=== PATIENT | female | born 1960 | race Caucasian/White ===

== ENCOUNTER 2020-08-20 13:55 | Outpatient (RCR) | payer BC, SELFPAY ==
--- NOTE | 2020-08-22 07:20 | PTOPEVAL ---
Thank you for referring Minal White to [facility].? The patient is scheduled to be seen for therapy? ___2_x/week for 8 visits. Please review, sign, date and return this plan of care MONICA. I agree with and certify that the following plan of care is medically necessary. Referring Physician Date Admitting Provider: Attending Provider: caron hebert Referring Provider: *PT Outpatient Evaluation Start: 08/20/20 14:08 Freq: Status: Active Protocol: Document 08/20/20 14:09 JESSICA (Rec: 08/20/20 15:02 JESSICA [id number]) Therapy Assessment Status Assessment Status Assessment Status Evaluation Evaluation Information Problem Diagnosis s/p bilateral TKA Onset 07/23/20 Subjective Information Pt. reports that she underwent Query Text:As Reported By Patient/ surgery on 07/23/20. She Family states that she was doing outpatient in [place] and living with her daughter. She has now returned home. She states that she still has swelling. She reports that pain remains around a 3/10 and is taking occassional Tylenol . She reports that her goal is to be able to walk normal, navigate steps and be able to get out of a chair/toilet comfortably. Prior Level of Function Activity Level (Last 3 Months) Occupation Nurse Hand Dominance Right Activity of Daily Living Ability Independent Indoor/Home Mobility Independent Community Mobility Independent Stairs Ability Independent Functional Cognition (Planning, Shopping Independent , Taking Medications) Cooking Yes Cleaning Yes Laundry Yes Shopping Yes Driving Yes Pain Assessment Pain Scale Pain Scale Used Numeric (1 - 10) Self Report Pain Assessment Bilateral Knee(s) Reported Pain Level 3 Pain Description Aching Pain Score Pain Score 3: Self Report Interventions Used Interventions Used By Clinicians Activity or ADL's,Exercise Lower Extremity Range of Motion General Lower Extremity Range of Motion Gross Lower Extremity Range of Motion right knee AROM 0-115 Comments left knee AROM 2-113 Lower Extremity Muscle Strength Testing General Lower Extremity Strength Gross Lower Extremity Strength bilateral hip flexion 4+/5
== END 2020-08-30 11:16 | disposition home or self-care (01) ==
LOC: CHSPT 13:55
PROVIDERS: PCP Family Medicine
DX: Z96.653 Presence of artificial knee joint, bilateral (principal)
CPT/HCPCS: 97110; 97161; 97530

== ENCOUNTER 2021-06-19 10:25 | Outpatient (CLI) | payer BC, SELFPAY ==
[2021-06-19 11:19] LABS: SARS-CoV-2 Ag Negative (Negative)
[2021-06-19 11:50] LABS: Hematocrit 36.7 % (35.0-49.0); Hemoglobin 12.3 g/dL (12.0-15.0); Mean Corpuscular HGB Conc 33.5 g/dL (32.0-36.0); Mean Corpuscular Hemoglobin 29.4 pg (27.0-31.0); Mean Corpuscular Volume 87.6 fL (78.0-102.0); Mean Platelet Volume 10.4 fl (9.2-11.8); Platelet Count Result 152 K/mm3 (150-420); Red Blood Count 4.19 M/mm3 (4.20-5.40); Red Cell Distribution Width 12.2 % (11.6-14.4); White Blood Count 14.2 K/mm3 (4.8-10.8)
[2021-06-19 11:51] LABS: Appearance Urine Cloudy (Clear); Bilirubin Urine 2+ (Negative); Blood Urine 3+ (Negative); Glucose Urine UA Negative (Negative); Ketones Urine Trace (Negative); Leukocyte Esterase Ur 3+ (Negative); Nitrate Urine Negative (Negative); Protein Urine 2+ (Negative); Specific Grav Ur 1.025 (1.010-1.020); pH Urine 5.5 (5.0-8.0)
[2021-06-19 11:57] LABS: Add Urine Microscopic? YES; Bacteria Urine 3+ /hpf; Color Urine Dark Brown (Yellow); RBC Urine 21-50 /hpf (0-2); Squamous Epithelial Cell Urine Moderate /hpf (Few); WBC Urine >75 /hpf (0-3)
[2021-06-19 12:13] LABS: Alanine Aminotransferase 100 U/L (14-59); Albumin Level 2.9 g/dL (3.4-5.0); Alkaline Phosphatase 333 U/L (46-116); Amylase 24 U/L (25-115); Anion Gap 13 mmol/L (8-16); Aspartate Amino Transferase 97 U/L (15-37); Bilirubin,Total 1.6 mg/dL (0.00-1.00); Blood Urea Nitrogen 30 mg/dL (7-18); Calcium 8.6 mg/dL (8.5-10.1); Carbon Dioxide 24 mmol/L (21-32); Chloride 98 mmol/L (98-108); Estimated Glomerular Filt Rate 17; Glucose 125 mg/dL (70-99); Lipase 81 U/L (73-393); Osmolality Calculated 287 mOsm/kg (285-295); Potassium 3.8 mmol/L (3.5-5.1); Sodium 135 mmol/L (136-145); Total Protein 6.9 g/dL (6.4-8.2)
[2021-06-19 12:26] LABS: Band Neutrophils Percent 15 % (0-6); Lymphocytes Absolute Manual 0.14 K/mm3 (1.1-4.5); Lymphocytes Percent Manual 1 % (18-44); Metamyelocytes Percent 4 %; Monocytes Absolute Manual 0.14 K/mm3 (0.1-0.90); Monocytes Percent Manual 1 % (3-9); Myelocytes Percent 2 %; Neutrophils Absolute Manual 13.06 K/mm3 (1.7-7.2); Neutrophils Percent Manual 77 % (46-73); Platelet Estimate Adequate (Adequate); Total Cells Counted 100
== END 2021-06-19 10:26 | disposition home or self-care (01) ==
PROVIDERS: PCP Family Medicine; Visit Provider Family Medicine
DX: N20.1 Calculus of ureter (principal); R50.9 Fever, unspecified; R10.9 Unspecified abdominal pain; Z20.822 Contact with and (suspected) exposure to COVID-19
CPT/HCPCS: 36415; 80053; 81001; 82150; 83690; 85025; 87040; 87077; 87086; 87088; 87186; 87426; C9803

== ENCOUNTER 2021-06-19 13:46 | Inpatient (IN) | payer BC, SELFPAY ==
[2021-06-19] VITALS (18 sets, daily range): BP systolic 72–110; BP diastolic 43–78; PULSE 60–111; RESP 16–20; TEMP 36.4–37.7; O2SAT 94–100
--- NOTE | ~2021-06-19 | XR_ITS ---
EXAMINATION: XR abdomen/kub 1V EXAM DATE: 06/19/2021 15:14 INDICATION: Kidney stone diagnosed 2 days ago. TECHNIQUE: Frontal projection of the upper abdomen, frontal projection lower abdomen/pelvis for inter pretation. Correlation is made to chest CT performed earlier. FINDINGS: Multiple pelvic calcifications, phleboliths. Difficult to confidently pick out the suspect ed right UVJ 2 x 4 mm stone. Nonobstructive bowel gas pattern. There is no organomegaly. IMPRESSION: Multiple pelvic calcifications. Reviewed, dictated and finalized at location G. ACT AGENT
--- NOTE | ~2021-06-19 | XR_ITS ---
EXAMINATION: XR chest 1V portable DATE: 06/19/2021 15:13 INDICATION: Fever TECHNIQUE: frontal view of the chest was obtained. COMPARISON: None FINDINGS: 3.8 cm masslike opacity with smooth margins projecting over the right hilum. Suggestion of an additio nal 3 cm masslike opacity projecting over the left hilum. Calcified nodule at the left apex versus hy pertrophic change at the anterior left first rib. No other airspace opacities, pulmonary edema, pleur al effusion or pneumothorax. Heart size is normal. Small amount of gas within a retrocardiac small hi atal hernia. IMPRESSION: 1. Masslike opacities at the bilateral eli, unclear whether within the lungs are superimposed lungs. Differential includes primary bronchogenic carcinoma, metastatic lymphadenopathy, lymphoma or dilate d pulmonary vasculature suggesting pulmonary arterial hypertension. Recommend further evaluation with contrast-enhanced chest CT. Reviewed, dictated and finalized at location A. MBLING FABRICATOR IMPRESSION: 1. Masslike opacities at the bilateral eli, unclear whether within the lungs a re superimposed lungs. Differential includes primary bronchogenic carcinoma, me tastatic lymphadenopathy, lymphoma or dilated pulmonary vasculature suggesting pulmonary arterial hypertension. Recommend further evaluation with contrast-enh anced chest CT.
--- NOTE | ~2021-06-19 | XR_ITS ---
EXAMINATION: XR retrograde pyelo w/stent LT DATE: 06/19/2021 16:36 INDICATION: Left ureteral stone. TECHNIQUE: 7 intraoperative fluoroscopic views of the abdomen and pelvis were obtained. I was not pre sent. Fluoroscopy exposure time was 35 seconds. COMPARISON: CT abdomen and pelvis 06/19/2021 FINDINGS: The left-sided retrograde pyelogram demonstrates mild left hydronephrosis. The final images demonstrate a left internal ureteral stent in expected position. IMPRESSION: 1. Mild left hydronephrosis with left internal ureteral stent in expected position. Reviewed, dictated and finalized at location A. CITY PLANNING ANALYST IMPRESSION: 1. Mild left hydronephrosis with left internal ureteral stent in expected posit ion.
--- NOTE | ~2021-06-19 | CT_ITS ---
EXAMINATION: CT abdomen pelvis wo con EXAM DATE: 06/19/2021 14:59 INDICATION: L flank pain hx of kidney stone. Prior CT at outside institution. TECHNIQUE: Spiral CT of the abdomen and pelvis was performed without contrast. Axial, coronal and s agittal images of the abdomen and pelvis were reviewed. The dose-length product (DLP) for this exami nation was 445.24 mGy-cm. The exposure was tailored according to patient size (auto mA exposure cont rol), and iterative reconstruction (ASIR) was used as additional dose reduction technique. There is no prior study for comparison. FINDINGS: The liver, spleen, adrenal glands and pancreas are unremarkable. Gallbladder is unremarkab le. No biliary obstruction. There is left UVJ 2 x 4 mm stone indicated on axial image 166. No hydro nephrosis at present, but there is moderate fat stranding surrounding the ureter and the left kidney. There is also hyperdense material within the left renal pelvis, but also probably some on the right which indicates this could be contrast from patient's prior CT scan. There is ill-defined approximate ly 2-3 cm lobular region midpole posterior cortex of left kidney, differential diagnosis including py elonephritis, hemorrhagic cyst, renal cell cancer. The uterus is not identified and has likely been s urgically resected. The bladder is collapsed at time of imaging limiting evaluation. There is no re troperitoneal or pelvic lymphadenopathy. There is mild scattered arteriosclerotic disease. There are no findings to suggest appendicitis. There is small sliding gastroesophageal hiatal hernia . There is expected amount of colonic stool. There is mild to moderate scattered colonic diverticulo sis. There is no adjacent inflammatory change to suggest diverticulitis. The heart is normal in size . There are no pericardial or pleural effusions. The lung bases are unremarkable. There are no ost eoblastic or osteolytic lesions identified. IMPRESSION: 1. Left UVJ 2 x 4 mm stone, moderate periureteral and perinephric fat. Indeterminate left renal midp ole region which could be pyelonephritis, hemorrhagic cyst or renal cell cancer. Correlation should b e made with patient's recent contrast-enhanced CT when available. 2. Punctate right nephrolithiasis. 3. Mild to moderate colonic diverticulosis. 4. Small hiatal hernia. Reviewed, dictated and finalized at location G. TS BOOK SERVER IMPRESSION: 1. Left UVJ 2 x 4 mm stone, moderate periureteral and perinephric fat. Indeter minate left renal midpole region which could be pyelonephritis, hemorrhagic cys t or renal cell cancer. Correlation should be made with patient's recent contra st-enhanced CT when available. 2. Punctate right nephrolithiasis. 3. Mild to moderate colonic diverticulosis. 4. Small hiatal hernia.
--- NOTE | ~2021-06-19 | US_ITS ---
EXAMINATION: US abdomen limited EXAM DATE: 06/20/2021 09:31 INDICATION: Elevated liver enzymes . TECHNIQUE: Multiple grayscale and Doppler images of the abdomen right upper quadrant were obtained (froylan y a technologist who performed the scan) and subsequently reviewed. There is no prior study for [facility]. FINDINGS: The pancreatic head and body are normal in appearance. The pancreatic tail is not visualized. The l iver has normal echogenicity and contour. There are no focal liver lesions identified. There is no evidence of intrahepatic biliary duct dilation. Portal venous flow was seen in the hepatopedal, nor mal direction and has normal Doppler waveform. No right-sided hydronephrosis. Small right renal cyst . Common bile duct measures 2 mm, which is normal. The gallbladder wall is normal in thickness, with ex pected amount of distention. No sonographic evidence of pericholecystic fluid. There is no cholelit hiases. Technologist performing exam reports patient did not demonstrate sonographic Mohan's sign. Please note that this sign is less reliable in patients who have received pain medication. IMPRESSION: Unremarkable abdominal ultrasound exam. Reviewed, dictated and finalized at location B. ICAL CHEMISTRY TEACHER
--- NOTE | 2021-06-19 14:09 | ED.FEVER ---
HPI - Fever General Chief Complaint: Fever Stated Complaint: fevers Time Seen by Provider: 06/19/21 14:01 Source: RN notes reviewed History of Present Illness HPI Narrative: Patient presents emergency department from home for fever. Patient states that she began having flank pain on Thursday the she is the following day she began to have fevers up to 103 and had gone to the emergency department at that time she had been found to have a left UVJ kidney stone with the rest of her lab work remained unremarkable and been discharged home. She follow-up with her PCP today and had blood cultures that returned positive x2 there have been no other results of blood cultures other than her positive at this time her PCP directed come to the ER new called myself for report noted the patient's creatinine had increased from 1-2.7 from outpatient blood work has been done yesterday as well. Patient states he had a fever up to 103 this morning she took Tylenol 2 hours ago states her flank pain has improved she denies any chest pain shortness of breath abdominal pain nausea vomiting or any other symptoms Related Data Allergies Allergy/AdvReac Type Severity Reaction Status Date / Time meperidine AdvReac Mild Nausea and Verified 09/17/11 09:17 Vomiting Review of Systems Review of Systems: Gen.: Reports fever and positive blood cultures ENT: Denies congestion Respiratory: Denies shortness of breath or cough CV: Denies chest pain or palpitations GI: Denies abdominal pain nausea, emesis or diarrhea denies burning, urgency, frequency or hematuria Musculoskeletal: Denies back pain or muscle pain Neuro: Denies numbness, tingling, weakness or focal weakness Skin: Denies rash Except as documented, all other systems reviewed and negative [facility] Past Medical History Medical History (Updated 06/19/21 @ 16:04 by Daniela Gregory MD) Acute renal insufficiency Obesity Sarcoidosis Severe sepsis Social History Social History (Updated 06/19/21 @ 14:11 by Travis Nunn DO) Smoking status: Never smoker Exam Narrative: APPEARANCE: No acute distress, nontoxic, resting in bed EYES: EOMI HEENT: Normocephalic, atraumatic, OMM RESPIRATORY: No respiratory distress Clear to auscultation bilaterally with no rhonchi wheezing or rales. CARDIOVASCULAR: Regular rate and rhythm without murmurs rubs or gallops. ABDOMINAL: Soft, nontender, nondistended, no rebound or guarding MUSCULOSKELETAl: Moves all extremities. No clubbing, cyanosis or edema. NEURO: Awake and alert. Following commands, speech normal, no focal deficits SKIN:: Warm, dry. No rashes lesions or abrasions PSYCHIATRIC: Normal affect/mood, Course Course Emergency Course: Reviewed records from [place] patient with creatinine of 1.[address] scan did show stone in the left UVJ Discussed Dr Purvis patient's chest x-ray patient has sarcoidosis and this would correlate with the patient's chest x-ray findings Discussed with Dr. Mabry presentation work-up agrees with consult agrees with plan take patient to the OR today for stent placement Discussed with JAY Farley for Dr Purvis presentation work-up agrees with admission Discussed with patient and family results of workup and diagnosis. Discussed need for admission. Patient and family understand and agree to current treatment plan [id number] Dr. Gregory in the emergency department evaluate the patient plan take patient OR Vital Signs Vital signs: Vital Signs Temperature 99.8 F H 06/19/21 13:58 Pulse Rate 92 06/19/21 13:58 Respiratory Rate 18 06/19/21 13:58 Blood Pressure 91/43 L 06/19/21 13:58 Pulse Oximetry 100 06/19/21 13:58 Temperature 98.7 F 06/19/21 15:55 Pulse Rate 82 06/19/21 15:55 Respiratory Rate 20 06/19/21 15:55 Blood Pressure 109/54 L 06/19/21 15:55 Pulse Oximetry 97 06/19/21 15:55 MDM - Fever Lab Data Result diagrams: 06/19/21 14:15 06/19/21 14:15 La
[2021-06-19 14:26] LABS: Hematocrit 36.6 % (37.0-47.0); Hemoglobin 12.4 g/dL (12.0-15.0); Mean Corpuscular HGB Conc 33.9 g/dl (32-36); Mean Corpuscular Hemoglobin 29.3 pg (26-34); Mean Corpuscular Volume 86.5 fl (80-100); Mean Platelet Volume 10.1 fl (7.4-10.4); Platelet Count Result 152 k/mm3 (150-375); Red Blood Count 4.23 M/mm3 (4.2-5.4); Red Cell Distribution Width 12.5 % (11.5-14.5); White Blood Count 17.5 K/mm3 (4.5-10.0)
[2021-06-19] MEDS: SODIUM CHLORIDE 0.9% IV 1,000 ML 999 ML IV CONT ×2 (14:35→15:27)
[2021-06-19 14:41] LABS: Alanine Aminotransferase 80 U/L (4-35); Albumin Level 3.8 g/dL (3.5-5.1); Alkaline Phosphatase 304 U/L (38-126); Anion Gap 13 mmol/L (8-16); Aspartate Amino Transferase 108 U/L (14-36); Bilirubin,Total 1.7 mg/dL (0.2-1.3); Blood Urea Nitrogen 32 mg/dL (7-17); Calcium 8.7 mg/dL (8.4-10.2); Carbon Dioxide 23 mmol/L (22-30); Chloride 96 mmol/L (98-107); Estimated CRCL calculation 26 ml/min; Estimated Glomerular Filt Rate 20; Glucose 123 mg/dL (65-110); Potassium 3.8 mmol/L (3.4-5.0); Sodium 132 mmol/L (137-145)
[2021-06-19 14:43] LABS: INR 1.2; Prothrombin Time 14.6 Seconds (11.1-14.7)
[2021-06-19 14:44] LABS: Partial Thromboplastin Time 37.5 SECONDS (22.3-36.8)
[2021-06-19 14:52] LABS: Add Urine Microscopic? YES; Appearance Urine Turbid (Clear); Bacteria Urine 4+ /hpf; Bilirubin Urine 1+ (Negative); Blood Urine 2+ (Negative); Glucose Urine UA Negative (Negative); Ketones Urine Negative (Negative); Leukocyte Esterase Ur 2+ LEU/UL (Negative); Mucus Urine Heavy /lpf; Nitrate Urine Negative (Negative); Protein Urine 2+ mg/dL (Negative); RBC Urine 21-50 /hpf (0-2); Specific Grav Ur 1.024 (1.001-1.035); Squamous Epithelial Cell Urine Many /hpf (Few); WBC Urine >75 /hpf
[2021-06-19 14:53] LABS: Color Urine Dark Amber (Yellow)
[2021-06-19 15:03] LABS: Band Neutrophils Percent 21 % (0-6); Lymphocytes Absolute Manual 0.35 K/mm3 (1.1-4.5); Metamyelocytes Percent 1 %; Monocytes Percent Manual 4 % (3-9); Neutrophils Absolute Manual 16.27 K/mm3 (1.7-7.2); Neutrophils Percent Manual 72 % (46-73); Total Cells Counted 100
[2021-06-19 15:04] LABS: Platelet Estimate Adequate (Adequate)
--- NOTE | 2021-06-19 15:37 | WPDANESEPPF ---
Anes - Initial Pre Proc Eval Procedure: Operation Date: 06/19/21 16:00 Proposed Procedures p Cystoscopy, Left Stent Placement, Possible Stone Extraction - Daniela Gregory MD Date/Time: 06/19/21 15:37 Pre Op Diagnosis: fevers Patient Data Age: 60 Gender: F Height: 1.68 m Weight: 102.5 kg Last Vital Signs Temp 37.7 C H 06/19/21 13:58 Pulse 92 06/19/21 13:58 Resp 18 06/19/21 13:58 BP 91/43 L 06/19/21 13:58 Pulse Ox 100 06/19/21 13:58 Allergies Allergy/AdvReac Type Severity Reaction Status Date / Time meperidine AdvReac Mild Nausea and Verified 09/17/11 09:17 Vomiting Laboratory Tests 06/19/21 06/19/21 06/19/21 14:15 14:15 14:15 WBC 17.5 K/mm3 H K/mm3 (4.5-10.0) RBC 4.23 M/mm3 M/mm3 (4.2-5.4) Hgb 12.4 g/dL g/dL (12.0-15.0) Hct 36.6 % L % (37.0-47.0) MCV 86.5 fl fl (80-100) MCH 29.3 pg pg (26-34) MCHC 33.9 g/dl g/dl (32-36) RDW 12.5 % % (11.5-14.5) Plt Count 152 k/mm3 k/mm3 (150-375) MPV 10.1 fl fl (7.4-10.4) Immature Gran % (Auto) Not Reportable Neut % (Auto) Not Reportable Lymph % (Auto) Not Reportable [place] % (Auto) Not Reportable Eos % (Auto) Not Reportable Baso % (Auto) Not Reportable Lymph # (Auto) Not Reportable [place] # (Auto) Not Reportable Eos # (Auto) Not Reportable Baso # (Auto) Not Reportable Abs Immat Gran (auto) Not Reportable Absolute Neuts (auto) Not Reportable Absolute Nucleated RBC Not Reportable Total Counted 100 Neutrophils % (Manual) 72 % % (46-73) Band Neutrophils % 21 % H % (0-6) Lymphocytes % (Manual) 2.0 % L % (18-44) Monocytes % (Manual) 4 % % (3-9) Metamyelocytes % 1 % % Nucleated RBC % Not Reportable Abs Neuts (Manual) 16.27 K/mm3 H K/mm3 (1.7-7.2) Abs Lymphs (Manual) 0.35 K/mm3 L K/mm3 (1.1-4.5) Abs Monocytes (Manual) 0.70 K/mm3 K/mm3 (0.1-0.90) Platelet Estimate Adequate (Adequate) PT 14.6 Seconds Seconds (11.1-14.7) INR 1.2 APTT 37.5 SECONDS H SECONDS (22.3-36.8) Sodium 132 mmol/L L mmol/L (137-145) Potassium 3.8 mmol/L mmol/L (3.4-5.0) Chloride 96 mmol/L L mmol/L (98-107) Carbon Dioxide 23 mmol/L mmol/L (22-30) Anion Gap 13 mmol/L mmol/L (8-16) BUN 32 mg/dL H mg/dL (7-17) Creatinine 2.50 mg/dL H mg/dL (0.7-1.0) Estim Creat Clear Calc 26 ml/min ml/min Estimated GFR 20 L (59 - ) Glucose 123 mg/dL H mg/dL (65-110) Lactic Acid Calcium 8.7 mg/dL mg/dL (8.4-10.2) Total Bilirubin 1.7 mg/dL H mg/dL (0.2-1.3) AST 108 U/L H U/L (14-36) ALT 80 U/L H U/L (4-35) Alkaline Phosphatase 304 U/L H U/L (38-126) Total Protein 7.0 g/dL g/dL (6.3-8.2) Albumin 3.8 g/dL g/dL (3.5-5.1) Urine Color Urine Appearance Urine pH Ur Specific [place] Urine Protein Urine Glucose (UA) Urine Ketones Ur Blood (Man) Urine Nitrate Urine Bilirubin Urine Urobilinogen Leukocyte Esterase Rfl Urine RBC Urine WBC Ur Squamous Epith Cells Urine Bacteria Urine Mucus SARS-CoV-2 RNA (RT-PCR) 06/19/21 06/19/21 06/19/21 14:15 14:21 15:29 WBC RBC Hgb Hct MCV MCH MCHC RDW Plt Count MPV Immature Gran % (Auto)
--- NOTE | 2021-06-19 16:01 | WPDURCON ---
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 The patient with sepsis secondary to urinary tract infection and obstruction of her left collecting system. -plan cystoscopy and left ureteral stent insertion. As the stone is in the ureterovesical junction it is possible that stone removal be necessary in order to place a ureteral stent. The risks of procedure include limb the to worsening infection, inability to place stent, injury to surrounding structures, need for additional operations were all discussed. Patient understands the risk of this emergent procedure and agrees to proceed Urology Consult Note HPI Date Seen: 06/19/21 Primary Care Provider: Anthony Gomez MD Consult Narrative Narrative: Minal White is a 60 year old female who presents to the ER with fevers. She was found to have a left-sided ureteral stone 2 days ago at an outside facility and discharged home. Since that time the patient developed fevers and chills. Patient presented to the emergency department for further evaluation. The ER physician states that she has had positive blood cultures x2 when taken on Thursday Review of Systems Review of Systems: All systems reviewed & are unremarkable except as noted in HPI and below PMFSH Past Medical History Medical History (Updated 06/19/21 @ 16:04 by Daniela Gregory MD) Acute renal insufficiency Obesity Sarcoidosis Severe sepsis Social History Social History (Updated 06/19/21 @ 14:11 by Travis Nunn DO) Smoking status: Never smoker Meds Home Medications and Allergies Allergies Allergy/AdvReac Type Severity Reaction Status Date / Time meperidine AdvReac Mild Nausea and Verified 09/17/11 09:17 Vomiting Vital Signs Vital Signs - 24 hr 06/19/21 13:58 06/19/21 15:37 Temperature 37.7 C H Pulse Rate 92 83 Respiratory Rate 18 Blood Pressure 91/43 L 109/54 L Pulse Oximetry 100 98 Exam Narrative: The patient is awake she is alert she is no acute distress. Breathing is unlabored. Abdomen soft nontender nondistended. Results Labs CBC & Chem 7: 06/19/21 14:15 06/19/21 14:15 Labs: Short CBC 06/19/21 Range/Units 14:15 WBC 17.5 H (4.5-10.0) K/mm3 Hgb 12.4 (12.0-15.0) g/dL Hct 36.6 L (37.0-47.0) % Plt Count 152 (150-375) k/mm3 BMP 06/19/21 14:15 Sodium 132 L Potassium 3.8 Chloride 96 L Carbon Dioxide 23 BUN 32 H Creatinine 2.50 H Glucose 123 H Calcium 8.7 Liver Function 06/19/21 Range/Units 14:15 Total Bilirubin 1.7 H (0.2-1.3) mg/dL AST 108 H (14-36) U/L ALT 80 H (4-35) U/L Alkaline Phosphatase 304 H (38-126) U/L Albumin 3.8 (3.5-5.1) g/dL Urine 06/19/21 Range/Units 14:21 Urine Color Dark miriam (Yellow) Urine Appearance Turbid H (Clear) Urine pH 5.0 (5.0-9.0) Ur Specific Hundred 1.024 (1.001-1.035) Urine Protein 2+ H (Negative) mg/dL Urine Glucose (UA) Negative (Negative) mg/dL Ordering Physician: Travis Nunn III, DO Date of Service: 06/19/21 Procedure(s): CT abdomen pelvis wo con Accession Number(s): [id number] cc: Travis Nunn III DO; Anthony Gomez MD~ EXAMINATION: CT abdomen pelvis wo con EXAM DATE: 06/19/2021 14:59 INDICATION: L flank pain hx of kidney stone. Prior CT at outside institution. TECHNIQUE: Spiral CT
[2021-06-19 16:12] LABS: SARS-CoV-2 RNA PCR Negative
[2021-06-19] MEDS: LIDOCAINE HCL 2% GEL UROJET 10 ML PKG MUCOUS MEM (16:25)
--- NOTE | 2021-06-19 16:30 | W.PM.PROC2 ---
Procedure Note - Detailed Date of Procedure 06/19/21 Pre-op Diagnosis Left ureteral stone, sepsis Post-op Diagnosis same Procedure Performed Cystoscopy, left retrograde pyelogram, left ureteral stent insertion Surgeon Daniela Gregory MD Anesthesia MAC Description of Procedure Informed consents obtained. Patient taken the operating. She given preoperative IV antibiotics in the emergency department. She was induced with anesthesia . She was placed in the dorsal lithotomy position. She was prepped and draped. We inserted a 20 F cystoscope through the urethra into the bladder. We inspected the bladder and there were no mucosal abnormalities. I did not see the stone visible at the ureterovesical junction. We then cannulated the left ureteral orifice with a Plexisoft wire and advanced 5 F angiographic catheter into the proximal ureter. Urine culture was obtained from the left collecting system. A retrograde pyelogram was performed revealing moderate left hydronephrosis. Over the wire a 6 F variable length stent was placed with a curl in the renal pelvis and a curl in the bladder. The bladder there was then emptied with a Oliver catheter. The patient was awakened and taken to recovery room in stable condition Drains No Packing No Pathology none sent Complications No immediate complications Condition stable Disposition PACU
[2021-06-19] MEDS: LACTATED RINGERS 1,000 ML 30 ML IV CONT ×3 (16:38→17:54)
[2021-06-19] MEDS: ePHEDrine sulfate INJ 50 MG/ML AMPUL IV PUSH ×3 (17:20→17:28)
[2021-06-19 17:23] LABS: Reflex Lactic Acid Yes or No Add Lactic
--- NOTE | 2021-06-19 18:43 | ADMGEN ---
This patient, Minal White, was admitted to Medical Room 250-01 from PACU Patient/family oriented to hospital policies and general routines including ID bracelet, bed and alarms, visiting hours, pain management, procedures, bathroom and other care routines, personal items, smoking policy, room service/diet, and visiting hours. Information on how to activate the Rapid Response Team has been discussed. Patient/Family are encouraged to report perceived risks to care and to ask questions if they do not understand what they are told or what they should do.
[2021-06-19 19:05] LABS: Lactic Acid 2.2 mmol/L (0.7-2.1)
[2021-06-19] MEDS: SODIUM CHLORIDE 0.9% IV 1,000 ML 125 ML IV CONT (19:48)
[2021-06-20 00:35] VITALS: BP 117/65; PULSE 66; RESP 18; TEMP 36.4; O2SAT 99
--- NOTE | 2021-06-20 01:36 | PM.IMHP ---
H&P: HPI History of Present Illness Date/Time: 06/19/210 this is a 60-year-old female patient who has had no previous history of kidney stones. The patient stated that her flank pain started on Thursday the . The following day she began had fevers up to 103 and she went to the emergency room in [place]. Initially the patient thought that maybe she just had a viral infection. However the patient was found to have a left UVJ stone with normal labs. The patient was then discharged to home. She did follow-up with her primary care doctor and that she did have blood cultures that were returned to be positive x2. The patient's creatinine was normal at that time. The patient had a fever up to 103 this morning and she took Tylenol 2 hours prior to coming to the emergency room. Sodium 132. Creatinine is 2.5 BUN 32 glucose 123. Lactic is 3.0 and then it came down to 2.2 after fluids. Zaiz T is 108? total bilirubin 1.7. AST 108. ALT 80. Alkaline phosphatase 304. Patient is positive for UTI. The patient was started on IV fluids ceftriaxone, fentanyl, and Versed. White count 17.5. CT scan of the abdomen and pelvis was read as the following. 1. Left UVJ 2 x 4 mm stone, moderate periureteral and perinephric fat. Indeterminate left renal midpole region which could be pyelonephritis, hemorrhagic cyst or renal cell cancer. Correlation should be made with patient's recent contrast-enhanced CT when available. 2. Punctate right nephrolithiasis. 3. Mild to moderate colonic diverticulosis. 4. Small hiatal hernia. Chest x-ray was read as the following Masslike opacities at the bilateral eli, unclear whether within the lungs are superimposed lungs. Differential includes primary bronchogenic carcinoma, metastatic lymphadenopathy, lymphoma or dilated pulmonary vasculature suggesting pulmonary arterial hypertension. Recommend further evaluation with contrast-enhanced chest CT. The patient had a left internal ureteral stent placed per Urology. The patient has no complaints at this time. Patient was initially admitted to observation and then changed to inpatient status on the date of service of 06/19/2021. Chief Complaint: Flank pain Review of Systems Review of Systems: All systems reviewed & are unremarkable except as noted in HPI and below Constitutional: Constitutional: Reports as per HPI and Reports no additional constitutional complaints Eyes: Eyes: Reports as per HPI and Reports no additional eye complaints ENT: Reports system reviewed and no additional complaints, except as documented and Reports Normal hearing present Cardiovascular: Cardiovascular: Reports no additional cardiovascular complaints Respiratory: Respiratory: Reports no additional respiratory complaints and Reports no additional respiratory complaints Gastrointestinal: Gastrointestinal: Reports as per HPI and Reports no additional gastrointestinal complaints Musculoskeletal: Musculoskeletal: Reports no additional musculoskeletal complaints Integumentary/Breasts: Skin/Breast: Reports system reviewed and no additional complaints, except as docu and Reports as per HPI Neurologic: Reports system reviewed and no additional complaints, except as documented, Reports as per HPI and Reports Normal hearing present Psychiatric: Psychiatric: Reports no additional psychiatric complaints and Reports as per HPI Endocrine: Endocrine: Reports no additional endocrine complaints Hematologic/Lymphatic: Hematologic/Lymphatic: Reports no additional hematologic/lymphatic complaints Allergic/Immunologic: Allergic/Immunologic: Reports no additional allergic/immunologic complaints PMFSH Past Medical History Medical History (Updated 06/20/21 @ 02:03 by Martine Galarza NP) Acute renal insufficiency Obesity Sarcoidosis Severe sepsis Surgical History Surgical History (Updated 06/20/21 @ 01:52 by Martine Galarza NP) H/O vaginal hysterectomy History of tonsillectomy Hx of cholecystec
[2021-06-20] MEDS: SODIUM CHLORIDE 0.9% IV 1,000 ML 125 ML IV CONT ×3 (03:23→22:13)
[2021-06-20 06:00] VITALS: BP 115/58; PULSE 76; RESP 16; TEMP 36.5; O2SAT 98
[2021-06-20 06:34] LABS: Basophils Absolute Auto 0.1 K/mm3 (0.0-0.1); Basophils Percent Auto 0.6 % (0.2-1.2); Hematocrit 31.9 % (37.0-47.0); Hemoglobin 10.6 g/dL (12.0-15.0); Immature Granulocyte Absolute 0.13 K/mm3 (0.00-0.031); Immature Granulocyte Percent A 1.1 % (0-0.5); Lymphocytes Absolute Auto 0.31 K/mm3 (0.9-3.2); Lymphocytes Percent Auto 2.5 % (18.3-44.2); Mean Corpuscular HGB Conc 33.2 g/dl (32-36); Mean Corpuscular Hemoglobin 29.1 pg (26-34); Mean Corpuscular Volume 87.6 fl (80-100); Mean Platelet Volume 11.2 fl (7.4-10.4); Monocytes Absolute Auto 0.5 K/mm3 (0.1-0.6); Monocytes Percent Auto 4.4 % (2.6-8.5); Neutrophils Absolute Auto 11.2 K/mm3 (1.3-6.7); Neutrophils Percent Auto 91.4 % (45.5-73.1); Platelet Count Result 116 k/mm3 (150-375); Red Blood Count 3.64 M/mm3 (4.2-5.4); Red Cell Distribution Width 12.8 % (11.5-14.5); White Blood Count 12.3 K/mm3 (4.5-10.0)
[2021-06-20 07:18] LABS: Alanine Aminotransferase 69 U/L (4-35); Albumin Level 3.3 g/dL (3.5-5.1); Alkaline Phosphatase 226 U/L (38-126); Anion Gap 8 mmol/L (8-16); Aspartate Amino Transferase 57 U/L (14-36); Bilirubin,Total 0.7 mg/dL (0.2-1.3); Blood Urea Nitrogen 25 mg/dL (7-17); Calcium 8.5 mg/dL (8.4-10.2); Carbon Dioxide 25 mmol/L (22-30); Chloride 104 mmol/L (98-107); Estimated CRCL calculation 46 ml/min; Estimated Glomerular Filt Rate 38; Glucose 107 mg/dL (65-110); Lipase 51 U/L (23-300); Magnesium 1.9 mg/dL (1.6-2.3); Sodium 137 mmol/L (137-145)
[2021-06-20 07:25] LABS: Hepatitis B Surface Antigen Negative (Negative)
[2021-06-20 07:27] LABS: Thyroid Stimulating Hormone Reflex 0.757 uIU/mL (0.465-4.68)
[2021-06-20 07:31] LABS: HAV RESULT Negative (Negative); Hepatitis B Core IgM Result Negative (Negative)
[2021-06-20 07:43] LABS: Hepatitis C Virus Antibody Negative (Negative)
[2021-06-20 08:00] LABS: CRP 34.9 mg/dL (<1.0)
[2021-06-20 10:23] VITALS: BP 125/86; PULSE 91; RESP 18; TEMP 36.3; O2SAT 100
--- NOTE | 2021-06-20 13:19 | PM.IMPN ---
Progress Note: A&P Assessment and Plan (1) Left ureteral calculus: Code(s): N20.1 - Calculus of ureter Status: Acute Assessment and Plan: The patient was found have a 4 mm left distal ureter stone with associated hydronephrosis. With sepsis secondary to urinary tract infection obstruction of her left collecting system. Patient had a cystoscopy and left ureteral stent inserted. Please see operative note per Urology. The patient has not had any previous history of having any kidney stones. However the patient does have a history of sarcoidosis which could cause hypercalcemia. 06/20/2021 Interval history: patient with a flank pain was found to have 4 mm left distal ureteral stone with associated hydronephrosis and fever, patient was seen by Urology and cystoscopy and stent was placed, patient urine and blood culture is growing Gram-negative bacilli, patient is treated with ceftriaxone, will follow-up on blood and urine culture sensitivity and further recommendation to follow, upon arrival patient serum creatinine was 2.77 most likely due to hydronephrosis and poor p.o. intake, it is trended now to 1.4 will continue gentle hydration and monitor kidney function, will continue to monitor and further recommendation to follow (2) Acute renal insufficiency: Code(s): N28.9 - Disorder of kidney and ureter, unspecified Status: Acute Assessment and Plan: Patient had obstructive nephropathy. Repeat labs in the a.m.. Most likely due to the kidney stone. Now that it has been removed hopefully will see the numbers come down. Continue with IV fluids. I did not order a renal ultrasound at this time but the patient did have left hydronephrosis with the left UVJ stone. (3) Elevated liver enzymes: Code(s): R74.8 - Abnormal levels of other serum enzymes Status: Acute Assessment and Plan: Unsure if this is related to early sepsis. Check lactic level. Abdominal ultrasound has been ordered. (4) UTI (urinary tract infection): Code(s): N39.0 - Urinary tract infection, site not specified Status: Acute Assessment and Plan: Repeat cultures. Urine and blood. We will need her records from [facility] for cultures and sensitivity from her last cultures. Continue with Rocephin for now. (5) Sarcoidosis: Code(s): D86.9 - Sarcoidosis, unspecified Status: Acute Assessment and Plan: Patient has some lymphadenopathy noted on her chest x-ray. She has masslike opacities. Will follow with CT of the lung. Most likely this is her sarcoidosis. Subjective Date/time seen: 06/20/21 13:19 HPI: this is a 60-year-old female patient who has had no previous history of kidney stones. The patient stated that her flank pain started on Thursday the . The following day she began had fevers up to 103 and she went to the emergency room in [place]. Initially the patient thought that maybe she just had a viral infection. However the patient was found to have a left UVJ stone with normal labs. The patient was then discharged to home. She did follow-up with her primary care doctor and that she did have blood cultures that were returned to be positive x2. The patient's creatinine was normal at that time. The patient had a fever up to 103 this morning and she took Tylenol 2 hours prior to coming to the emergency room. Sodium 132. Creatinine is 2.5 BUN 32 glucose 123. Lactic is 3.0 and then it came down to 2.2 after fluids. Zaiz T is 108? total bilirubin 1.7. AST 108. ALT 80. Alkaline phosphatase 304. Patient is positive for UTI. The patient was started on IV fluids ceftriaxone, fentanyl, and Versed. White count 17.5. CT scan of the abdomen and pelvis was read as the following. 1. Left UVJ 2 x 4 mm stone, moderate periureteral and perinephric fat. Indeterminate left renal midpole region which could be pyelonephritis, hemorrhagic cyst or renal cell cancer. Correlation should be made
--- NOTE | 2021-06-20 14:04 | WPDUROPN2 ---
Progress Note: A&P Assessment and Plan (1) Left ureteral calculus: Code(s): N20.1 - Calculus of ureter Status: Acute (2) Severe sepsis: Code(s): A41.9 - Sepsis, unspecified organism; R65.20 - Severe sepsis without septic shock Status: Acute (3) Acute renal insufficiency: Code(s): N28.9 - Disorder of kidney and ureter, unspecified Status: Acute Assessment and Plan: Much improved, both subjectively and objectively. Await repeat culture. I'll plan plans for definitive left ureteral stone extraction for 1-2 weeks (following treatment current UTI) Subjective Subjective Date/Time Seen: 06/20/21 14:04 Pt. feeling much better, tolerating stent well. Review of Systems Cardiovascular: Cardiovascular: Denies chest pain, Denies lightheadedness, Denies palpitations and Denies dyspnea Respiratory: Respiratory: Denies dyspnea Gastrointestinal: Gastrointestinal: Denies diarrhea, Denies nausea and Denies vomiting Genitourinary: Genitourinary: Denies hematuria and Denies dysuria Endocrine: Endocrine: Denies palpitations Exam Const: General: no acute distress Resp: Effort & Inspection: normal respiratory effort GI: Inspection: non-distended GI Palp: No abdominal tenderness and No Guarding due to palpation present (GI) Auscultation: normal bowel sounds Objective Data Vital Signs Vital Signs: Vital Signs - 24 hr 06/19/21 15:37 06/19/21 15:55 06/19/21 16:38 Temperature 98.7 F 98.1 F Pulse Rate 83 82 86 Respiratory Rate 20 18 Blood Pressure 109/54 L 109/54 L 80/48 L Pulse Oximetry 98 97 96 06/19/21 16:45 06/19/21 17:00 06/19/21 17:15 Temperature Pulse Rate 77 60 67 Respiratory Rate 18 18 18 Blood Pressure 98/61 L 80/55 L 90/60 L Pulse Oximetry 94 100 100 06/19/21 17:20 06/19/21 17:25 06/19/21 17:30 Temperature Pulse Rate 63 68 69 Respiratory Rate 18 18 20 Blood Pressure 72/58 L 90/67 L 110/65 Pulse Oximetry 100 100 100 06/19/21 17:45 06/19/21 18:00 06/19/21 18:15 Temperature 98.3 F Pulse Rate 74 78 82 Respiratory Rate 20 18 18 Blood Pressure 106/78 104/70 96/52 L Pulse Oximetry 100 99 98 06/19/21 18:30 06/19/21 18:59 06/19/21 19:00 Temperature 97.5 F L 97.9 F Pulse Rate 77 111 H 75 Respiratory Rate 16 20 16 Blood Pressure 97/63 L 102/58 L 100/54 L Pulse Oximetry 99 100 99 06/19/21 19:30 06/19/21 20:30 06/20/21 00:35 Temperature 97.9 F 97.6 F 97.6 F Pulse Rate 73 71 66 Respiratory Rate 16 16 18 Blood Pressure 110/54 L 96/54 L 117/65 Pulse Oximetry 100 98 99 06/20/21 06:00 06/20/21 10:23 Temperature 97.7 F 97.3 F L Pulse Rate 76 91 Respiratory Rate 16 18 Blood Pressure 115/58 L 125/86 Pulse Oximetry 98 100 Intake/Output Intake/Output: Intake & Output 06/17/21 06/18/21 06/19/21 06/20/21 23:59 23:59 23:59 23:59 Intake Total 1950 2100 Output Total 220 1200 Balance 1730 900 Meds/Results Medications: Active Medications Generic Name Dose Route Start Last Admin Trade Name Freq PRN Reason Stop Dose Admin Ceftriaxone Sodium/Dextrose 1 gm in 50 mls @ 100 mls/hr 06/20/21 14:00 06/20/21 13:56 Rocephin 1 Gm/D5w 50 Ml IVPB 100 mls/hr Q24H PATIENCE Administration Sodium Chloride 1,000 mls @ 125 mls/hr 06/19/21 15:10 06/20/21 14:00 Normal Saline Iv IV CONT 125 mls/hr .Q8H PATIENCE Administration Radiology Results: ITS Impressions Abdomen/Pelvis CT 06/19/21 15:03 IMPRESSION: 1. Left UVJ 2 x 4 mm stone, moderate periureteral and perinephric fat. Indeterminate left renal midpole region which could be pyelonephritis, hemorrhagic cyst or renal cell cancer. Correlation should be made with patient's recent contrast-enhanced CT when available. 2. Punctate right nephrolithiasis. 3. Mild to moderate colonic diverticulosis. 4. Small hiatal hernia. Abdomen X-Ray 06/19/21 15:15 IMPRESSION: Multiple pelvic calcifications. Chest X-Ray 06/19/21 15:16 IMPRESSION: 1. Mas
[2021-06-20 14:07] VITALS: BP 113/61; PULSE 81; RESP 20; TEMP 36.4; O2SAT 98
[2021-06-20 20:20] VITALS: BP 116/67; PULSE 68; RESP 18; TEMP 36.8; O2SAT 100
[2021-06-21 04:32] VITALS: BP 106/60; PULSE 69; RESP 18; TEMP 36.8; O2SAT 97
[2021-06-21] MEDS: SODIUM CHLORIDE 0.9% IV 1,000 ML 125 ML IV CONT (06:20)
--- NOTE | 2021-06-21 11:37 | PM.IMPN ---
Progress Note: A&P Assessment and Plan (1) Left ureteral calculus: Code(s): N20.1 - Calculus of ureter Status: Acute Assessment and Plan: The patient was found have a 4 mm left distal ureter stone with associated hydronephrosis. With sepsis secondary to urinary tract infection obstruction of her left collecting system. Patient had a cystoscopy and left ureteral stent inserted. Please see operative note per Urology. The patient has not had any previous history of having any kidney stones. However the patient does have a history of sarcoidosis which could cause hypercalcemia. 06/20/2021 Interval history: patient with a flank pain was found to have 4 mm left distal ureteral stone with associated hydronephrosis and fever, patient was seen by Urology and cystoscopy and stent was placed, patient urine and blood culture is growing Gram-negative bacilli, patient is treated with ceftriaxone, will follow-up on blood and urine culture sensitivity and further recommendation to follow, upon arrival patient serum creatinine was 2.77 most likely due to hydronephrosis and poor p.o. intake, it is trended now to 1.4 will continue gentle hydration and monitor kidney function, will continue to monitor and further recommendation to follow (2) Acute renal insufficiency: Code(s): N28.9 - Disorder of kidney and ureter, unspecified Status: Acute Assessment and Plan: Patient had obstructive nephropathy. Repeat labs in the a.m.. Most likely due to the kidney stone. Now that it has been removed hopefully will see the numbers come down. Continue with IV fluids. I did not order a renal ultrasound at this time but the patient did have left hydronephrosis with the left UVJ stone. (3) Elevated liver enzymes: Code(s): R74.8 - Abnormal levels of other serum enzymes Status: Acute Assessment and Plan: Unsure if this is related to early sepsis. Check lactic level. Abdominal ultrasound has been ordered. (4) UTI (urinary tract infection): Code(s): N39.0 - Urinary tract infection, site not specified Status: Acute Assessment and Plan: Repeat cultures. Urine and blood. We will need her records from [facility] for cultures and sensitivity from her last cultures. Continue with Rocephin for now. (5) Sarcoidosis: Code(s): D86.9 - Sarcoidosis, unspecified Status: Acute Assessment and Plan: Patient has some lymphadenopathy noted on her chest x-ray. She has masslike opacities. Will follow with CT of the lung. Most likely this is her sarcoidosis. Subjective Date/time seen: 06/21/21 11:37 06/20/2021 Interval history: patient with a flank pain was found to have 4 mm left distal ureteral stone with associated hydronephrosis and fever, patient was seen by Urology and cystoscopy and stent was placed, patient urine and blood culture is growing Gram-negative bacilli, patient is treated with ceftriaxone, will follow-up on blood and urine culture sensitivity and further recommendation to follow, upon arrival patient serum creatinine was 2.77 most likely due to hydronephrosis and poor p.o. intake, it is trended now to 1.4 will continue gentle hydration and monitor kidney function, will continue to monitor and further recommendation to follow. 06/21/2021 Interval history:Patient remains clinically stable no new complaints denies any fever or chills, her urine and blood culture are growing E coli sensitive to ceftriaxone, discharge the patient home and patient will receive IV antibiotics for 5 days at home and thereafter cefdinir 300 mg b.i.d. for 5 days, patient will follow-up with her urologist is scheduled, patient is being discharged Review of Systems Review of Systems: All systems reviewed & are unremarkable except as noted in HPI and below Objective Data Vital Signs Vital Signs: Vital Signs - 24 hr 06/20/21 14:07 06/20/21 20:20 06/21/21 04:32 Temperature 97.5 F L 98
[2021-06-21] MEDS: LIDOCAINE HCL 1% PF INJ 5 ML VIAL INFILTRATE (13:30)
--- NOTE | 2021-06-21 13:36 | WPDUROPN2 ---
Progress Note: A&P Assessment and Plan (1) Left ureteral calculus: Code(s): N20.1 - Calculus of ureter Status: Acute (2) Severe sepsis: Code(s): A41.9 - Sepsis, unspecified organism; R65.20 - Severe sepsis without septic shock Status: Acute Additional Plan Much improved Plan discharge home on antibiotics per primary team Plan for definitive left ureteral stone extraction for 1-2 weeks Subjective Subjective Date/Time Seen: 06/21/21 13:36 no new complaints - pt feeling much better Exam Const: General: cooperative, healthy appearing and comfortable Objective Data Vital Signs Vital Signs: Vital Signs - 24 hr 06/20/21 14:07 06/20/21 20:20 06/21/21 04:32 Temperature 36.4 C L 36.8 C 36.8 C Pulse Rate 81 68 69 Respiratory Rate 20 18 18 Blood Pressure 113/61 116/67 106/60 Pulse Oximetry 98 100 97 Intake/Output Intake/Output: Intake & Output 06/18/21 06/19/21 06/20/21 06/21/21 23:59 23:59 23:59 23:59 Intake Total 1950 4130 1900 Output Total 220 2300 Balance 1730 1830 1900 Meds/Results Medications: Active Medications Generic Name Dose Route Start Last Admin Trade Name Freq PRN Reason Stop Dose Admin Sodium Chloride 1,000 mls @ 125 mls/hr 06/19/21 15:10 06/21/21 06:20 Normal Saline Iv IV CONT 125 mls/hr .Q8H PATIENCE Administration Ceftriaxone Sodium 2 gm/ 100 mls @ 200 mls/hr 06/21/21 12:00 Sodium Chloride IVPB Q24H [facility] Radiology Results: ITS Impressions Abdomen/Pelvis CT 06/19/21 15:03 IMPRESSION: 1. Left UVJ 2 x 4 mm stone, moderate periureteral and perinephric fat. Indeterminate left renal midpole region which could be pyelonephritis, hemorrhagic cyst or renal cell cancer. Correlation should be made with patient's recent contrast-enhanced CT when available. 2. Punctate right nephrolithiasis. 3. Mild to moderate colonic diverticulosis. 4. Small hiatal hernia. Abdomen X-Ray 06/19/21 15:15 IMPRESSION: Multiple pelvic calcifications. Chest X-Ray 06/19/21 15:16 IMPRESSION: 1. Masslike opacities at the bilateral eli, unclear whether within the lungs are superimposed lungs. Differential includes primary bronchogenic carcinoma, metastatic lymphadenopathy, lymphoma or dilated pulmonary vasculature suggesting pulmonary arterial hypertension. Recommend further evaluation with contrast-enhanced chest CT. Retrograde Pyelogram 06/19/21 16:38 IMPRESSION: 1. Mild left hydronephrosis with left internal ureteral stent in expected position. Abdomen Ultrasound 06/20/21 09:36 IMPRESSION: Unremarkable abdominal ultrasound exam. Quality VTE Prophylaxis VTE prophylaxis: mechanical ordered
[2021-06-21 14:00] VITALS: BP 146/69; PULSE 70; RESP 16; TEMP 36.1; O2SAT 98
[2021-06-21] MEDS: cefTRIAXone 2 GM in SODIUM CHLORIDE 0.9% IV 100 ML 200 ML IVPB (14:10)
--- NOTE | 2021-06-21 15:07 | PM.DS ---
DS: Admitting Diagnosis Discharge Date 06/21/2020 Admitting Diagnosis abdominal pain DS: Discharge Diagnosis Discharge Diagnosis (1) Left ureteral calculus: Code(s): N20.1 - Calculus of ureter Status: Acute Assessment and Plan: The patient was found have a 4 mm left distal ureter stone with associated hydronephrosis. With sepsis secondary to urinary tract infection obstruction of her left collecting system. Patient had a cystoscopy and left ureteral stent inserted. Please see operative note per Urology. The patient has not had any previous history of having any kidney stones. However the patient does have a history of sarcoidosis which could cause hypercalcemia. 06/20/2021 Interval history: patient with a flank pain was found to have 4 mm left distal ureteral stone with associated hydronephrosis and fever, patient was seen by Urology and cystoscopy and stent was placed, patient urine and blood culture is growing Gram-negative bacilli, patient is treated with ceftriaxone, will follow-up on blood and urine culture sensitivity and further recommendation to follow, upon arrival patient serum creatinine was 2.77 most likely due to hydronephrosis and poor p.o. intake, it is trended now to 1.4 will continue gentle hydration and monitor kidney function, will continue to monitor and further recommendation to follow (2) Acute renal insufficiency: Code(s): N28.9 - Disorder of kidney and ureter, unspecified Status: Acute Assessment and Plan: Patient had obstructive nephropathy. Repeat labs in the a.m.. Most likely due to the kidney stone. Now that it has been removed hopefully will see the numbers come down. Continue with IV fluids. I did not order a renal ultrasound at this time but the patient did have left hydronephrosis with the left UVJ stone. (3) Elevated liver enzymes: Code(s): R74.8 - Abnormal levels of other serum enzymes Status: Acute Assessment and Plan: Unsure if this is related to early sepsis. Check lactic level. Abdominal ultrasound has been ordered. (4) UTI (urinary tract infection): Code(s): N39.0 - Urinary tract infection, site not specified Status: Acute Assessment and Plan: Repeat cultures. Urine and blood. We will need her records from [facility] for cultures and sensitivity from her last cultures. Continue with Rocephin for now. (5) Sarcoidosis: Code(s): D86.9 - Sarcoidosis, unspecified Status: Acute Assessment and Plan: Patient has some lymphadenopathy noted on her chest x-ray. She has masslike opacities. Will follow with CT of the lung. Most likely this is her sarcoidosis. DS: Summary Hospital Course Reason for hospitalization: this is a 60-year-old female patient who has had no previous history of kidney stones. The patient stated that her flank pain started on Thursday the . The following day she began had fevers up to 103 and she went to the emergency room in [place]. Initially the patient thought that maybe she just had a viral infection. However the patient was found to have a left UVJ stone with normal labs. The patient was then discharged to home. She did follow-up with her primary care doctor and that she did have blood cultures that were returned to be positive x2. The patient's creatinine was normal at that time. The patient had a fever up to 103 this morning and she took Tylenol 2 hours prior to coming to the emergency room. Sodium 132. Creatinine is 2.5 BUN 32 glucose 123. Lactic is 3.0 and then it came down to 2.2 after fluids. Zaiz T is 108? total bilirubin 1.7. AST 108. ALT 80. Alkaline phosphatase 304. Patient is positive for UTI. The patient was started on IV fluids ceftriaxone, fentanyl, and Versed. White count 17.5. CT scan of the abdomen and pelvis was read as the following. 1. Left UVJ 2 x 4 mm stone, moderate periureteral and perinephric fat. Indeterminate left renal midpo
== END 2021-06-21 16:15 | disposition home or self-care (01) | DRG 854 ==
LOC: ANHED 15:33 → ANH2MED 06-20 10:10
PROVIDERS: Nurse Practitioner; Urology; Admitting Provider Internal Medicine; Emergency Provider Emergency Medicine; PCP Family Medicine; Visit Provider Family Medicine
PROC: 0T778DZ Dilation of Left Ureter with Intraluminal Device, Via Natural or Artificial Opening Endoscopic (ICD-10-PCS; CPT 52352; principal; 2021-06-19 16:00)
DX: A41.9 Sepsis, unspecified organism (principal); N13.6 Pyonephrosis; R65.20 Severe sepsis without septic shock; Z20.822 Contact with and (suspected) exposure to COVID-19; D86.9 Sarcoidosis, unspecified; N28.9 Disorder of kidney and ureter, unspecified; E66.9 Obesity, unspecified; Z68.36 Body mass index [BMI] 36.0-36.9, adult; Z90.49 Acquired absence of other specified parts of digestive tract; Z90.710 Acquired absence of both cervix and uterus
CPT/HCPCS: 36415; 36569; 71045; 74018; 74176; 74420; 76705; 80053; 80074; 81001; 82728; 83605; 83690; 83735; 84100; 84443; 85025; 85610; 85730; 86140; 87040; 87077; 87086; 87186; 96361; 96365; 96375; 99285; A9270; C1751; C1769; C1887; C2617; C9803; G0378; J0696; J2250; J3010; J7030; J7120; Q9966; U0003; U0005

== ENCOUNTER 2021-06-28 00:46 | Day surgery (SDC) | payer BC, SELFPAY ==
[2021-06-25 12:48] VITALS: BMI 33.9
--- NOTE | 2021-06-25 12:55 | PC.NURSE ---
Report to the Outpatient Waiting Room, entrance under the green pavilion located off [facility], at time 0930 on date 06/28/21. OR Time: 1130. - You will be asked a series of questions to screen for COVID 19 for your protection. - A mask is required within the hospital. - No visitors are allowed at this time. Preoperative COVID Testing Requirements: TO BRING CARD No COVID Test needed if: (proof is required; if not received patient will have Rapid Test prior to entry) - Patient has received COVID Vaccine at least 14 days prior to procedure date or - Patient has positive COVID test result within last 90 days of surgery date. COVID Test needed if above criteria is not met Patients may have clear liquids (water, carbonated beverages, clear teas, apple juice) until 3 hours prior to surgery with a maximum of 20 ounces. - No food from midnight until time of surgery Take the following medications with a SIP of water the morning of surgery: CEFDINIR Medications to discontinue per physician: N/A Date to take last dose: N/A Please no make-up, nail icelandic, hairspray, perfume, deodorant, or body powder the day of surgery. No jewelry (including any body piercings) or valuables the day of surgery, leave them at home. Please take a shower or bath the night before, or the morning of, surgery with an antibacterial soap. Wear comfortable, loose fitting clothing. - Jewelry must be removed prior to entering the operating room. Rings and piercings that are not removed may be cut off. - The hospital will not accept responsibility for valuables. - Please leave all valuables, including medications, at home the day of surgery. If you are going home after surgery, a licensed local bulk driver must drive you home. - NO public transportation without another adult. - We recommend that an adult stay with you for 24 hours following discharge. - We also recommend that you do not drive, make important decision, drink alcoholic beverages, or take any drugs that were not prescribed by your health care provider for at least 24 hours after your discharge time. Follow any additional instructions given to you from your surgeon. Telephone instructions given to XENIA PAIGE and asked if any additional questions and then verbalized understanding. Patient advised to call surgeon office or pre surgery nurse liaison [phone] if any additional questions.
--- NOTE | 2021-06-26 16:20 | PM.HPGS ---
History of Present Illness History of Present Illness Consent: Risks, benefits, and alternatives have been discussed and questions answered. Patient agrees to proceed with procedure. Chief complaint: left ureteral stone Narrative: Minal White is a 60 year old female recently admitted with a small obstructing left distal ureteral calculus and obstructive pyelonephritis. She underwent ureteral stent placement by Dr. Gregory and presents now for definitive intervention to extract her left ureteral stone. She is aware of the risk of this procedure including, but not limited to, recurrence of her urinary tract infection, ureteral injury, persistent left flank pain, need to replace the ureteral stent. Review of Systems Cardiovascular: Cardiovascular: Denies chest pain, Denies lightheadedness, Denies palpitations and Denies dyspnea Respiratory: Respiratory: Denies dyspnea Gastrointestinal: Gastrointestinal: Denies diarrhea, Denies nausea and Denies vomiting Genitourinary: Genitourinary: Denies hematuria and Denies dysuria Endocrine: Endocrine: Denies palpitations PMFSH Past Medical History Medical History Acute renal insufficiency Obesity Sarcoidosis Severe sepsis Surgical History Surgical History H/O vaginal hysterectomy History of tonsillectomy Hx of cholecystectomy S/P ureteral stent placement 06/19/2021 Status post bilateral knee replacements Family History Family History Mother Alcoholism Father Heart disease Carcinoma of colon Social History Social History Social History: The patient is and has 2 children. 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 lifelong nonsmoker. She occasionally socially drinks. She is a lifelong nonsmoker. Does not use any marijuana or illicit drug. She does not have a durable power family law attorney for healthcare. Code status full code Smoking status: Never smoker Alcohol intake: current Alcohol use details: RARE Substance use: never Substance use type: does not use Living arrangements: alone Spiritual care concerns: No Meds Home Medications and Allergies Home Medications Medication Instructions Recorded Confirmed Type cefdinir 300 mg PO Q12H #10 cap 06/21/21 06/25/21 Rx Allergies Allergy/AdvReac Type Severity Reaction Status Date / Time meperidine AdvReac Mild Nausea and Verified 06/25/21 12:47 Vomiting Exam Const: General: no acute distress Resp: Effort & Inspection: normal respiratory effort GI: Inspection: non-distended GI Palp: No abdominal tenderness and No Guarding due to palpation present (GI) Auscultation: normal bowel sounds Assessment and Plan Assessment and plan (1) Left ureteral calculus: Code(s): N20.1 - Calculus of ureter Status: Acute Assessment and Plan: Cystoscopy, left ureteroscopy with stone extraction and possible stent replacement.
[2021-06-28] VITALS (7 sets, daily range): BP systolic 105–143; BP diastolic 61–87; PULSE 63–86; RESP 15–18; TEMP 36.2–37.2; O2SAT 100
--- NOTE | ~2021-06-28 | XR_ITS ---
XR fluoroscopy no charge DATE: 06/28/2021 13:23 INDICATION: Left sided stone extraction TECHNIQUE: 3 spot C-arm images 5.0 seconds fluoroscopy time [id number] mGym2 COMPARISON: 06/19/[address] abdomen pelvis 06/19/2021 left retrograde pyelogram and stent placement 06/19/2021 KUB FINDINGS: A left internal urinary stent is present in expected position on 2 images and absent on a t hird image. IMPRESSION: Please refer to the urologist procedure report. Reviewed, dictated and finalized at Location A. Reviewed, dictated and finalized at location A. ATTENDANT
--- NOTE | 2021-06-28 06:58 | WPDHPUPDATE1 ---
History and Physical Update Update Date/Time: 06/28/21 06:58 History and Physical has been reviewed, including an updated exam of the patient. There are NO changes in the patient's condition. Risks, benefits, and alternatives have been discussed and questions answered. Patient agrees to proceed with procedure.
[2021-06-28] MEDS: LACTATED RINGERS 1,000 ML 30 ML IV CONT (10:44)
--- NOTE | 2021-06-28 12:12 | WPDANESEFPP ---
Anes - Eval Final PreProcedure Day of Procedure 06/28/21 12:12 Patient weight: obese Heart: regular rate and rhythm Lungs: clear to auscultation Airway: Mallampati scale class II Neurological: alert and oriented Last oral intake: >/= 8 hours ASA classification: III Emergent: no Anesthetic plan: proceed Anesthesia type and monitoring: general LMA and standard monitoring Results Review: All pre-operative results and documents have been reviewed as part of the pre-operative evaluation. Informed Consent: The patient's anesthetic plan and its attendant risks and benefits were discussed with the patient/family/POA. Questions were solicited and answers provided to the satisfaction of the patient/family/POA.
[2021-06-28] MEDS: ceFAZolin 2 GM/D5W 50 ML 2 GM/50 ML BAG IVPB (12:56)
--- NOTE | 2021-06-28 13:18 | P.OP_ITS ---
Procedure Note - Detailed Date of Procedure 06/28/21 Pre-op Diagnosis Left ureteral stone Post-op Diagnosis same Procedure Performed Cystoscopy, left ureteral stent removal and left ureteroscopy with stone extraction Surgeon Tomy Crenshaw MD Anesthesia general Description of Procedure The patient was brought to the operative suite where she is prepped and draped in a routine sterile fashion while in the dorsal lithotomy position after the uneventful induction of a general LMA anesthetic. A 19F rigid cystoscope was placed in the bladder. The patient had no evidence of urethral stricture or bladder neck contracture. The bladder mucosa was endoscopically normal without hyperemia or neoplasm. There was a single, orthotopic ureteral orifice bilaterally. the tip of the indwelling stent is grasped been it is extracted with ease. A 0.035 glidewire was advanced into the left renal pelvis under f luoroscopy. TUreteroscopy was undertaken with a short, tapered, semi-rigid ureteroscope and the stone was extracted with ease using a 1.9F Escape disposable stone basket. Due to the ease of this manipulation I opted not to replace a ureteral stent. The patient's bladder was emptied and was taken to the recovery room having tolerated this procedure well. Estimated Blood Loss 0 Drains No Packing No Pathology yes Complications No immediate complications Condition stable Disposition PACU
--- NOTE | 2021-06-28 14:43 | SUR.PHASEII ---
DR. ZENDEJAS CALLED RE: ANTIBIOTIC AND MIDLINE. DR. ZENDEJAS INSTRUCTED FOR PATIENT TO TAKE PO ANTIBIOTIC THIS EVENING AND FOR RN TO REMOVE MIDLINE BEFORE DISCHARGING HOME.
== END 2021-06-28 14:58 | disposition home or self-care (01) ==
PROVIDERS: PCP Family Medicine; Visit Provider Urology
PROC: (CPT 52352; principal; 2021-06-28 13:30)
DX: N20.1 Calculus of ureter (principal); N12 Tubulo-interstitial nephritis, not specified as acute or chronic; E66.9 Obesity, unspecified; Z68.36 Body mass index [BMI] 36.0-36.9, adult; Z90.49 Acquired absence of other specified parts of digestive tract
CPT/HCPCS: 52352; 82365; 88300; A9270; C1769; J0690; J2250; J2405; J2704; J3010; J7120

== ENCOUNTER 2022-01-07 16:42 | Outpatient (CLI) | payer BC, SELFPAY ==
--- NOTE | ~2022-01-07 | XR_ITS ---
EXAM: XR abdomen/kub 1V DATE: 01/07/2022 16:58 HISTORY: LEFT URETERAL STONE . COMPARISON: None available. FINDINGS: Normal bowel gas pattern. No organomegaly. Multiple pelvic phleboliths. Lower lumbar degen erative change. IMPRESSION: No radiographic evidence of urolithiasis. Reviewed, dictated and finalized at location K.
== END 2022-01-07 16:43 | disposition home or self-care (01) ==
PROVIDERS: PCP Family Medicine; Visit Provider Urology
DX: N20.1 Calculus of ureter (principal)
CPT/HCPCS: 74018

== ENCOUNTER 2023-12-18 00:31 | Day surgery (SDC) | payer BC, SELFPAY ==
[2023-12-14 09:45] VITALS: BMI 36.3
[2023-12-18 08:10] VITALS: BP 150/93; PULSE 79; RESP 20; TEMP 36.1; O2SAT 100; BMI 38.0
[2023-12-18] MEDS: LACTATED RINGERS 1,000 ML 150 ML IV CONT (08:19)
--- NOTE | 2023-12-18 08:22 | P.PNAN_ITS ---
Anes - Initial Pre Proc Eval Procedure: Operation Date: 12/18/23 09:30 Proposed Procedures p Screening Colonoscopy - Uvaldo Rosario MD Date/Time: 12/18/23 08:22 Surgeon: Uvaldo Rosario MD Pre Op Diagnosis: Neoplasm screening Patient Data Age: 63 Gender: F Height: 1.68 m Weight: 106.7 kg Last Vital Signs Temp 97.0 F L 12/18/23 08:10 Pulse 79 12/18/23 08:10 Resp 20 12/18/23 08:10 BP 150/93 H 12/18/23 08:10 Pulse Ox 100 12/18/23 08:10 O2 Del Method Room Air 12/18/23 08:10 Allergies Allergy/AdvReac Type Severity Reaction Status Date / Time meperidine AdvReac Mild Nausea and Verified 12/18/23 08:09 Vomiting Home Medications Medication Instructions Recorded Confirmed Type No Home Medications 12/14/23 12/18/23 History Patient hx anesthesia problems: none Family hx anesthesia problems: none Results Review: All pre-operative results and documents have been reviewed as part of the pre- operative evaluation. [facility] Past Medical History Medical History Acute renal insufficiency Obesity Sarcoidosis Severe sepsis Surgical History Surgical History H/O vaginal hysterectomy History of tonsillectomy Hx of cholecystectomy S/P ureteral stent placement 06/19/2021 Status post bilateral knee replacements Family History Family History Mother Alcoholism Father Heart disease Carcinoma of colon Social History Social History Social History: The patient is and has 2 children. 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 She occasionally socially drinks. She is a lifelong nonsmoker. Does not use any marijuana or illicit drug. She does not have a durable power district attorney for healthcare. Code status full code Smoking status: Never smoker Alcohol intake: never Alcohol use details: RARE Substance use: never Substance use type: does not use Living arrangements: with family Spiritual care concerns: No Anes - Eval Final PreProcedure Day of Procedure 12/18/23 08:22 Patient weight: obese Heart: regular rate and rhythm Lungs: clear to auscultation Airway: Mallampati scale class II Neurological: alert and oriented Last oral intake: >/= 8 hours ASA classification: III Emergent: no Anesthetic plan: proceed Anesthesia type and monitoring: general GIVS and standard monitoring Results Review: All pre-operative results and documents have been reviewed as part of the pre- operative evaluation. Pt w sarcoidosis, obesity, active w walking, biking, no cp or sob. Informed Consent: The patient's anesthetic plan and its attendant risks and benefits were discussed with the patient/family/POA. Questions were solicited and answers provided to the satisfaction of the patient/family/POA.
--- NOTE | 2023-12-18 08:26 | P.HP_ITS ---
History of Present Illness History of Present Illness Consent: Risks, benefits, and alternatives have been discussed and questions answered. Patient agrees to proceed with procedure. Chief complaint: Neoplasm screening Narrative: Minal White is a 63 year old female here for first colonoscopy, father had colon cancer Review of Systems Review of Systems: All systems reviewed & are unremarkable except as noted in HPI and below PMFSH Past Medical History Medical History (Updated 12/18/23 @ 08:27 by Uvaldo Rosario MD) Acute renal insufficiency Family history of colon cancer in father Obesity Sarcoidosis Severe sepsis Surgical History Surgical History H/O vaginal hysterectomy History of tonsillectomy Hx of cholecystectomy S/P ureteral stent placement 06/19/2021 Status post bilateral knee replacements Family History Family History Mother Alcoholism Father Heart disease Carcinoma of colon Social History Social History Social History: The patient is and has 2 children. 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 She occasionally socially drinks. She is a lifelong nonsmoker. Does not use any marijuana or illicit drug. She does not have a durable power high school art teacher for healthcare. Code status full code Smoking status: Never smoker Alcohol intake: never Alcohol use details: RARE Substance use: never Substance use type: does not use Living arrangements: with family Spiritual care concerns: No Meds Home Medications and Allergies Home Medications Medication Instructions Recorded Confirmed Type No Home Medications 12/14/23 12/18/23 History Allergies Allergy/AdvReac Type Severity Reaction Status Date / Time meperidine AdvReac Mild Nausea and Verified 12/18/23 08:09 Vomiting Vital Signs Vital Signs - 24 hr 12/18/23 08:10 Temperature 97.0 F L Pulse Rate 79 Respiratory Rate 20 Blood Pressure 150/93 H Pulse Oximetry 100 Oxygen Delivery Room Air Exam Const: General: comfortable and no acute distress HENMT: Face/Nose/Sinus: Normal nares present Eyes: General: appearance normal, both eyes and all related structures Neck: Neck: no JVD Resp: Auscultation: clear to auscultation bilaterally Cardio: Rate: regular rate Rhythm: regular rhythm GI: Inspection: non-distended GI Palp: Yes Soft to palpation Skin: General skin exam: normal color Neuro: General: gait normal Speech: normal speech Extrem: General: normal to inspection Psych: Mental Status: mental status grossly normal Assessment and Plan Assessment and plan (1) Family history of colon cancer in father: Code(s): Z80.0 - Family history of malignant neoplasm of digestive organs Status: Acute Assessment and Plan: colonoscopy
[2023-12-18 09:26] VITALS: BP 109/64; PULSE 76; RESP 20; O2SAT 96
[2023-12-18 09:36] VITALS: BP 119/71; PULSE 74; RESP 20; O2SAT 96
[2023-12-18 09:46] VITALS: BP 129/77; PULSE 65; RESP 20; O2SAT 92
== END 2023-12-18 10:06 | disposition home or self-care (01) ==
PROVIDERS: PCP Family Medicine; Visit Provider Internal Medicine Gastroenterology
PROC: 0DJD8ZZ Inspection of Lower Intestinal Tract, Via Natural or Artificial Opening Endoscopic (ICD-10-PCS; CPT 45378; principal; 2023-12-18 09:30)
DX: Z12.11 Encounter for screening for malignant neoplasm of colon (principal); Z80.0 Family history of malignant neoplasm of digestive organs; K57.30 Diverticulosis of large intestine without perforation or abscess without bleeding; K64.8 Other hemorrhoids; E66.9 Obesity, unspecified; Z68.38 Body mass index [BMI] 38.0-38.9, adult
CPT/HCPCS: 45378; J7120

== ENCOUNTER 2025-05-11 21:25 | Inpatient (IN) | payer MEDICARE, BC, SELFPAY ==
--- NOTE | ~2025-05-11 | CT_ITS ---
EXAM/PROCEDURE: CT abdomen pelvis w con HISTORY: diffuse abd pain, radiation to back COMPARISON: June 19, 2021 TECHNIQUE: IV contrast enhanced CT of abdomen and pelvis FINDINGS: The bowel gas pattern is not struck with no free air or pneumatosis. Trace amount of peripancreatic fluid about the head and uncinate region. Cholelithiasis also noted with possible mild gallbladder wall thickening. Mild biliary ductal dilatation may also be present. No discrete pancreatic lesion or mass seen. No hydroureteronephrosis or grossly inflamed appendix. Patient appears to be status post hysterectomy. Adnexal regions unremarkable. Mild to moderate diverticular disease with no gross acute diverticulitis. No AAA. Mild to moderate at the sclerotic calcification the aorta. Mild fibrotic appearing changes in lung bases which are otherwise clear. Heart size normal. Moderate-sized hiatal hernia. IMPRESSION: 1. Pancreatic head and uncinate findings may be associated with pancreatitis. Correlate with amylase and lipase levels; also, gallbladder findings could represent cholecystitis. Right upper quadrant ultrasound may provide additional beneficial information. 2. Other chronic findings as above. NOTE: Preliminary radiologist report provided by [facility] radiologist/physician. IMPRESSION: No acute findings. Reviewed, dictated and finalized at location A. ANALYSIS WELL LOGGING CAPTAIN IMPRESSION: 1. Pancreatic head and uncinate findings may be associated with pancreatitis. C orrelate with amylase and lipase levels; also, gallbladder findings could repre sent cholecystitis. Right upper quadrant ultrasound may provide additional bene ficial information. 2. Other chronic findings as above. NOTE: Preliminary radiologist report provided by [facility] radiologist/physician . IMPRESSION: No acute findings.
--- NOTE | ~2025-05-11 | MR_ITS ---
EXAMINATION: MR MRCP wo/w con/w 3D wo ind DATE: 05/12/2025 12:52 INDICATION: Pancreatitis possible cholecystitis TECHNIQUE: Magnetic resonance imaging (MRI) of the abdomen was performed with intravenous contrast. Sequences included coronal T2-weighted FS FSE, coronal T2- weighted FSE, axial T1-weighted LAVA, coronal FS FIESTA, axial dual-echo T1- weighted SPGR, coronal lava-FLEX, sagittal T2-weighted FSE, axial T2-weighted FSE, and axial DWI. Thick-slab T2-weighted FSE images were obtained for magnetic resonance cholangiopancreatography (MRCP). Maximum intensity projection 3-D reconstructions of the volumetric data were created by the technologist. Postcontrast sequences included coronal LAVA-flex and time course of axial T1- weighted LAVA. COMPARISON: CT of abdomen and pelvis same date. FINDINGS: The gallbladder is mildly distended with cholelithiasis and mild gallbladder wall thickening present. The gallbladder wall along the inferior margin measures approximately 5 mm. The common bile duct measures up to 5.8 cm. The proximal pancreatic duct is mildly ectatic and measures 3.4 mm. The pancreatic body duct is normal size. The pancreas otherwise appears normal. MRCP images somewhat limited by moderate amount of motion artifact, however no discrete filling defects identified. A 2.1 x 1.7 x 1.5 cm fluid-filled structure is present along the medial margin of the descending duodenum image 10 series 3, and image 27 series 9 in very close proximity to the pancreatic portion of the common bile duct, may represent a choledochocyst or some variant of Caroli's disease. Diverticulum along the medial aspect of the descending duodenum is less likely. No evidence of obstruction of the common bile duct which is very close in proximity seen on MRCP images. Small bilateral simple appearing renal cysts. The pancreas appears otherwise normal. IMPRESSION: 1. Cholelithiasis with distended gallbladder and gallbladder wall thickening most suggestive of cholecystitis with possible cystic duct obstruction. Hepatobiliary scintigraphy may provide additional beneficial information. 2. There is slight prominence in the proximal pancreatic duct, however the biliary ducts otherwise are normal in size. No choledocholithiasis or discrete intraductal filling defect is identified in the common bile duct or pancreatic duct. No evidence of acute pancreatitis. 3. 2.1 cm fluid-filled or cystic lesion in immediate proximity to the pancreatic portion of the common bile duct probably represents small duodenal diverticulum. Choledochocele could have a similar appearance but there appears to be a small diverticulum from the duodenum in this area on today's CT exam. Reviewed, dictated and finalized at location A. E EXECUTIVE IMPRESSION: 1. Cholelithiasis with distended gallbladder and gallbladder wall thickening mo st suggestive of cholecystitis with possible cystic duct obstruction. Hepatobil iary scintigraphy may provide additional beneficial information. 2. There is slight prominence in the proximal pancreatic duct, however the bili pradeep ducts otherwise are normal in size. No choledocholithiasis or discrete intr aductal filling defect is identified in the common bile duct or pancreatic duct . No evidence of acute pancreatitis. 3. 2.1 cm fluid-filled or cystic lesion in immediate proximity to the pancreati c portion of the common bile duct probably represents small duodenal diverticul um. Choledochocele could have a similar appearance but there appears to be a sm all diverticulum from the duodenum in this area on today's CT exam.
--- NOTE | ~2025-05-11 | XR_ITS ---
EXAMINATION: XR cholangiogram surg 1st inj DATE: 05/13/2025 09:07 INDICATION: Laparoscopic cholecystectomy with intraoperative cholangiogram TECHNIQUE: 144 fluoroscopic images of the right upper quadrant were obtained procedure performed by Dr. Bynum. Radiologist was not present for the imaging or procedure. The amount of fluoroscopy time used during this procedure was 0.4 minutes. The dose area product was 0.282 mGym^2. COMPARISON: MRI/MRCP dated 05/12/2025 FINDINGS: The cystic duct has been cannulated in the region of several cholecystic clips with contrast injection opacifying the more distal cystic duct, the common hepatic and common bile ducts. There are couple small mobile lucent filling defects in the distalmost common bile duct which changes in size and conf iguration during the course of the injection consistent with injected gas bubbles. No other evident choledocholithiasis. Contrast extends from the distal common bile duct to opacify a small choledochal cyst. There is also reflux of contrast into the normal-appearing central intrahepatic biliary tree. IMPRESSION: 1. Small choledochal cyst arising from the distal common bile duct. 2. Mobile lucent filling defects in the distal common bile duct which appear to change in size and configuration favoring gas bubbles over choledocholithiasis. See procedure note for further detail. Reviewed, dictated and finalized at location A. REGULATOR IMPRESSION: 1. Small choledochal cyst arising from the distal common bile duct. 2. Mobile lucent filling defects in the distal common bile duct which appear to change in size and configuration favoring gas bubbles over choledocholithiasis . See procedure note for further detail.
--- NOTE | ~2025-05-11 | US_ITS ---
EXAMINATION: US abdomen limited DATE: 05/12/2025 10:56 INDICATION: Possible Cholecystitis TECHNIQUE: Multiple grayscale and Doppler ultrasound images of the abdomen were obtained. COMPARISON: None FINDINGS: The gallbladder is borderline distended. No gross wall thickening or pericholecystic fluid. The pancreas is incompletely visualized. Wall thickness approximately 1.2 mm Several gallstones are seen. Common bile duct: 3 mm Technologist reports positive sonographic Mohan's sign. No free fluid seen. IMPRESSION: 1. Cholelithiasis with reported positive Mohan's sign by technologist. No gross wall thickening or pericholecystic fluid. 2. The common bile duct is within normal limits. Reviewed, dictated and finalized at location A. ETS SALESPERSON IMPRESSION: 1. Cholelithiasis with reported positive Mohan's sign by technologist. No frank s wall thickening or pericholecystic fluid. 2. The common bile duct is within normal limits.
[2025-05-11 21:28] VITALS: BP 155/81; PULSE 98; RESP 18; TEMP 36.7; O2SAT 97
[2025-05-11 23:37] VITALS: BP 148/74; PULSE 104; RESP 16; TEMP 36.9; O2SAT 99
[2025-05-11 23:52] LABS: Hematocrit 42.4 % (37.0-47.0); Hemoglobin 14.6 g/dL (12.0-15.0); Immature Granulocyte Percent A 0.1 % (0-0.5); Lymphocytes Absolute Auto 0.52 K/mm3 (0.9-3.2); Mean Corpuscular HGB Conc 34.4 g/dl (32-36); Mean Corpuscular Hemoglobin 29.7 pg (26-34); Mean Corpuscular Volume 86.2 fl (80-100); Nucleated Red Blood Cells Absolute Auto 0.000 K/mm3 (0.0-0.012); Nucleated Red Blood Cells Perc 0.0 % (0.0-0.2); Platelet Count Result 141 k/mm3 (150-375); Red Blood Count 4.92 M/mm3 (4.2-5.4); White Blood Count 8.6 K/mm3 (4.5-10.0)
[2025-05-12] VITALS (19 sets, daily range): BP systolic 109–155; BP diastolic 45–84; PULSE 92–125; RESP 14–22; TEMP 36.8–37.2; O2SAT 92–97
[2025-05-12 00:06] LABS: Alanine Aminotransferase 35 U/L (6-35); Albumin Level 4.6 g/dL (3.5-5.1); Alkaline Phosphatase 103 U/L (38-126); Anion Gap 9 mmol/L (4-12); Aspartate Amino Transferase 39 U/L (14-36); Bilirubin,Total 3.6 mg/dL (0.2-1.3); Blood Urea Nitrogen 21 mg/dL (7-17); Calcium 9.6 mg/dL (8.4-10.2); Carbon Dioxide 21 mmol/L (22-30); Chloride 100 mmol/L (98-107); Estimated CRCL calculation 54 ml/min; Estimated Glomerular Filt Rate 48; Glucose 170 mg/dL (65-110); Lipase 49 U/L (23-300); Potassium 3.9 mmol/L (3.4-5.0); Sodium 130 mmol/L (137-145); Total Protein 8.2 g/dL (6.3-8.2)
--- NOTE | 2025-05-12 00:06 | ED.ABDPAIN ---
HPI - Abdominal Pain General Chief Complaint: Abdominal Pain Stated Complaint: Vomiting since last night, now abd pain Time Seen by Provider: 05/11/25 23:56 Source: patient Mode of arrival: ambulatory Limitations: no limitations History of Present Illness HPI narrative: This is a 64-year-old female with history of prior kidney stone who presents the ED for back pain and abdominal pain. Patient states that yesterday, she had onset of bilateral low back pain that began to radiate to her entire abdomen. She has never had pain like this before. She also had nausea and multiple episodes of vomiting. She had Zofran at home which she took and has helped with that but her pain continues prompting her to come to the ED. She has not been urinating much but also not been drinking much so she believes it is due to that. Denies hematuria, dysuria constipation, diarrhea. Last normal bowel movement was yesterday. Last colonoscopy was 2 years ago and was normal. Related Data Home Medications ?Medication ?Instructions ?Recorded ?Confirmed ?Last Taken ?Type multivitamin (Daily Multi-Vitamin 1 tablet PO DAILY 05/12/25 05/12/25 Unknown History tablet) Allergies Allergy/AdvReac Type Severity Reaction Status Date / Time meperidine AdvReac Mild Nausea and Verified 05/12/25 06:12 Vomiting Review of Systems Review of Systems: Gen.: Denies fevers or chills Eyes: Denies eye pain or visual change ENT: Denies congestion Respiratory: Denies shortness of breath or cough CV: Denies chest pain or palpitations GI: As per HPI denies burning, urgency, frequency or hematuria Musculoskeletal: Denies back pain or muscle pain Neuro: Denies numbness, tingling, weakness or focal weakness Skin: Denies rash Except as documented, all other systems reviewed and negative [facility] Past Medical History Medical History Family history of colon cancer in father Obesity Acute renal insufficiency Severe sepsis Sarcoidosis Surgical History Surgical History Status post bilateral knee replacements History of tonsillectomy H/O vaginal hysterectomy Hx of cholecystectomy S/P ureteral stent placement 06/19/2021 Family History Family History (Updated 05/12/25 @ 06:13 by Martha Hawkins RN) Mother Alzheimer dementia Father Heart disease Carcinoma of colon Social History Social History Social History: The patient is and has 2 children. 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 lifelong nonsmoker. She occasionally socially drinks. She is a lifelong nonsmoker. Does not use any marijuana or illicit drug. She does not have a durable power commonwealth attorney for healthcare. Code status full code Smoking status: Never smoker Alcohol intake: current Drinks per week: 2 Alcohol use details: RARE Substance use: never Substance use type: does not use Lack of Transportation: No Lack of Food: Never True Current Housing: I Have Housing Concerned About Future Housing: No Difficulty Paying Gas/Electric Bills: No Difficulty Paying for Meds: No Currently Unemployed: No Education: Associate Degree Difficulty w/ Childcare or Family Care: No Living arrangements: with family Spiritual care concerns: No Exam Narrative: APPEARANCE: No acute distress, nontoxic, resting in bed EYES: EOMI HEENT: Normocephalic, atraumatic, OMM RESPIRATORY: No respiratory distress Clear to auscultation bilaterally with no rhonchi wheezing or rales. CARDIOVASCULAR: Regular rate and rhythm without murmurs rubs or gallops. ABDOMINAL: Soft, mild diffuse tenderness to palpation MUSCULOSKELETAl: Moves all extremities. No clubbing, cyanosis or edema. NEURO: Awake and alert. Following commands, speech normal, no focal deficits SKIN:: Warm, dry. No rashes lesions or abrasions PSYCHIATRIC: Normal affect/mood, Course Vital Signs Vital signs: Vital Signs Temperature 98.1 F 05/11/25 21:28 Pulse Rate 98 05/11/25 21:28 Respiratory Rate 18 05/11/25 21:28 Blood Pressure 155/81 H 05/11/25 21:28 Pulse Oximetry 97 05/11/25 21:28 Oxygen Delivery Room Air 05/11/25 21:28 Temperature 98.3 F 05/12/25 06:04 Pulse Rate 103 H 05/12/25 06:37 Respiratory Rate 20 05/12/25 06:37 Blood Pressure 130/61 05/12/25 06:04 Pulse Oximetry 97 05/12/25 06:37 Oxygen Delivery Room Air 05/12/25 06:37 MDM MDM Narrative Medical decision making narrative: 64-year-old female Presenting for abdominal pain radiating to her back. On initial evaluation patient was in no acute distress afebrile, hemodynamic stable. Differentials include but are not limited to: ACS, Cholecystitis, choledocolithiasis, GERD, PUD, Pancreatitis, SBO, Cancer, AAA Notable exam findings: Tenderness palpation to the epigastrium. I personally reviewed the patient's lab result. Notable lab findings: CBC without significant abnormalities. Mild hyponatremia 130. Mildly elevated creatinine at 1.13. Bilirubin elevated at 3.6. UA more consistent with a contaminated specimen. CT abdomen/pelvis showed pancreatitis and cholelithiasis. Patient was given IV fluids and morphine. She did have improvement of her symptoms. She will require admission for further evaluation. Discussed the case with hospitalist who will admit the patient. Differential Diagnosis Differential Diagnosis: ACS, Cholecystitis, choledocolithiasis, GERD, PUD, Pancreatitis, SBO, Cancer, AAA Lab Data MDM Lab Attestation statement: I personally reviewed the patient's lab results. 05/11/25 23:46 05/11/25 23:46 Labs: Lab Results 05/11/25 05/11/25 Range/Units 23:46 23:53 WBC 8.6 (4.5-10.0) K/mm3 RBC 4.92 (4.2-5.4) M/mm3 Hgb 14.6 D (12.0-15.0) g/dL Hct 42.4 (37.0-47.0) % MCV 86.2 (80-100) fl MCH 29.7 (26-34) pg MCHC 34.4 (32-36) g/dl RDW 12.7 (11.5-14.5) % Plt Count 141 L (150-375) k/mm3 MPV 10.2 (7.4-10.4) fl Immature Gran % (Auto) 0.1 (0-0.5) % Neut % (Auto) 91.1 H (45.5-73.1) % Lymph % (Auto) 6.0 L (18.3-44.2) % [place] % (Auto) 2.6 (2.6-8.5) % Eos % (Auto) 0.0 (0-4.4) % Baso % (Auto) 0.2 (0.2-1.2) % Lymph # (Auto) 0.52 L (0.9-3.2) K/mm3 [place] # (Auto) 0.2 (0.1-0.6) K/mm3 Eos # (Auto) 0.0 (0-0.3) K/mm3 Baso # (Auto) 0.0 (0.0-0.1) K/mm3 Abs Immat Gran (auto) 0.01 (0.00-0.031) K/mm3 Absolute Neuts (auto) 7.8 H (1.3-6.7) K/mm3 Absolute Nucleated RBC 0.000 (0.0-0.012) K/mm3 Band Neutrophils % Not Reportable Nucleated RBC % 0.0 (0.0-0.2) % Platelet Estimate Slightly decreased (Adequate) Polychromasia Occasional Anisocytosis 1+ Mullen Cells 1+ Schistocytes None seen Sodium 130 L (137-145) mmol/L Potassium 3.9 (3.4-5.0) mmol/L Chloride 100 (98-107) mmol/L Carbon Dioxide 21 L (22-30) mmol/L Anion Gap 9 (4-12) mmol/L BUN 21 H (7-17) mg/dL Creatinine 1.13 H (0.7-1.0) mg/dL Estim Creat Clear Calc 54 ml/min Estimated GFR 48 L (59 - ) Glucose 170 H (65-110) mg/dL Calcium 9.6 (8.4-10.2) mg/dL Total Bilirubin 3.6 H (0.2-1.3) mg/dL AST 39 H (14-36) U/L ALT 35 (6-35) U/L Alkaline Phosphatase 103 (38-126) U/L Total Protein 8.2 (6.3-8.2) g/dL Albumin 4.6 (3.5-5.1) g/dL Lipase 49 (23-300) U/L Urine Color [place] H (Yellow) Urine Appearance Cloudy H (Clear) Urine pH 5.0 (5.0-9.0) Ur Specific [place] 1.027 (1.001-1.035) Urine Protein 2+ H (Negative) mg/dL Urine Glucose (UA) Negative (Negative) mg/dL Urine Ketones Trace H (Negative) mg/dL Ur Blood (Man) 1+ H (Negative) Urine Nitrate Positive H (Negative) Urine Bilirubin 2+ H (Negative) Urine Urobilinogen 1.0 (<2.0) mg/dL Add Ur Microanalysis Reviewed Leukocyte Esterase Rfl 1+ H (Negative) FÁTIMA/UL Urine RBC 0-2 (0-2) /hpf Urine WBC 11-20 H (0-3) /hpf Ur Squamous Epith Cells Many H (Few) /hpf Urine Bacteria 4+ H /hpf Urine Casts 11-20 Hyaline Casts Present (None) /lpf Urine Mucus Present /lpf Discharge Plan Discharge Clinical Impression: Acute hyponatremia Acute pancreatitis Qualifiers: Pancreatitis type: unspecified pancreatitis type Acute pancreatitis complication: unspecified Qualified Code(s): K85.90 - Acute pancreatitis without necrosis or infection, unspecified Patient Disposition: Still a Patient Condition: Stable
[2025-05-12 00:07] LABS: Add Urine Microscopic? YES; Appearance Urine Cloudy (Clear); Glucose Urine UA Negative (Negative); Leukocyte Esterase Ur 1+ LEU/UL (Negative); Need Manual Microscopic Reviewed; Nitrate Urine Positive (Negative); Specific Grav Ur 1.027 (1.001-1.035)
[2025-05-12 00:09] LABS: Anisocytosis 1+
[2025-05-12 00:10] LABS: Burr Cells 1+; Polychromasia Occasional; Schistocytes None Seen
[2025-05-12] MEDS: SODIUM CHLORIDE 0.9% IV 1,000 ML 999 ML IV CONT ×2 (00:27→03:00)
[2025-05-12] MEDS: MORPHINE SULFATE (*CRX) 4 MG/ML INJ IV PUSH ×2 (00:27→06:29)
[2025-05-12] MEDS: SODIUM CHLORIDE 0.9% IV 1,000 ML 150 ML IV CONT (03:00)
--- NOTE | 2025-05-12 05:07 | WPCEDHO ---
ED Hand Off Checklist All vitals saved: Y IV Site documented: Y All med administrations documented: Y Triage Note Triage Note Patient here with nausea, 05/11/25 21:28 vomiting and abdominal pain that started last night. Pain radiated to her back more last night-does have kidney stone history Allergies meperidine Adverse Reaction (Mild, Verified 12/18/23 08:09) Nausea and Vomiting Family History (Last Reviewed 05/12/25 @ 00:07 by Claudio Little DO) Mother Alcoholism Father Heart disease Carcinoma of colon Active Medications including assessments/comments Sodium Chloride (Normal Saline Iv) 1,000 mls @ 150 mls/hr IV CONT .Q6H40M STA Stop: 05/12/25 09:23 Last Admin: 05/12/25 03:00 Dose: 150 mls/hr Documented By: DORYS Infusion/Titration Document 05/12/25 03:00 DORYS (Rec: 05/12/25 03:00 DORYS [id number]) Intake IV Site Peripheral Access Left Antecubital Container Volume 1,000 Waste Amount 0 Dosing Infusion Rate 150 Cumulative Dose Not Applicable Increase/Decrease Started Elapsed Time Elapsed Time ( 0m minutes) Administered/Completed Medications Discontinued Medications Sodium Chloride (Normal Saline Iv) 1,000 mls @ 999 mls/hr IV CONT .Q1H1M STA Stop: 05/12/25 01:08 Last Infusion: 05/12/25 01:28 Dose: Infused Documented By: Admin: 05/12/25 00:27 Dose: 999 mls/hr Documented By: DORYS Sodium Chloride (Normal Saline Iv) 1,000 mls @ 999 mls/hr IV CONT .Q1H1M STA Stop: 05/12/25 03:44 Last Admin: 05/12/25 03:00 Dose: 999 mls/hr Documented By: DORYS Morphine Sulfate (Morphine Sulfate (*Crx) 4 Mg/Ml Inj) 4 mg IV PUSH ONCE STA Stop: 05/12/25 00:09 Last Admin: 05/12/25 00:27 Dose: 4 mg Documented By: DORYS Interventions/Assessments IV / Saline Lock, Insert Start: 05/11/25 21:32 Freq: STAT Status: Active Protocol: Document 05/12/25 00:26 DORYS (Rec: 05/12/25 00:27 DORYS [id number]) IV Assessment Peripheral Access Left Antecubital IV Catheter Access Initiated IV Insertion Date 05/12/25 IV Insertion Time 00:27 Catheter Gauge 20 IV Insertion 1 Attempts Ultrasound Used for No Placement IV Site Assessment WNL IV Care and WNL Maintenance PA: Gastrointestinal Assessment Start: 05/11/25 21:25 Freq: Status: Active Protocol: Document 05/12/25 00:02 HNK (Rec: 05/12/25 00:02 HNK [id number]) GI Assessment Gastrointestinal Nausea,Pain,Vomiting Symptoms Description Soft,Distended,Firm Flatus Present Gastrointestinal Pt reports pain, nausea/vomiting that began yesterday. Additional Comments Reports fullness Last Vital Signs Temperature 98.5 F 05/11/25 23:37 Pulse Rate 98 05/12/25 04:46 Respiratory Rate 19 05/12/25 04:46 Pulse Oximetry 93 05/12/25 04:46 Blood Pressure 124/54 L 05/12/25 04:46 Blood Pressure Mean 75 05/12/25 04:46 Blood Pressure Position Sitting 05/11/25 23:37 Oxygen Delivery Room Air 05/11/25 21:28 Weight 106 kg 05/11/25 21:28 Last Result - Abnormals Only Plt Count 141 k/mm3 (150-375) L 05/11/25 23:46 Neut % (Auto) 91.1 % (45.5-73.1) H 05/11/25 23:46 Lymph % (Auto) 6.0 % (18.3-44.2) L 05/11/25 23:46 Lymph # (Auto) 0.52 K/mm3 (0.9-3.2) L 05/11/25 23:46 Absolute Neuts (auto) 7.8 K/mm3 (1.3-6.7) H 05/11/25 23:46 Sodium 130 mmol/L (137-145) L 05/11/25 23:46 Carbon Dioxide 21 mmol/L (22-30) L 05/11/25 23:46 BUN 21 mg/dL (7-17) H 05/11/25 23:46 Creatinine 1.13 mg/dL (0.7-1.0) H 05/11/25 23:46 Estimated GFR 48 (59-) L 05/11/25 23:46 Glucose 170 mg/dL (65-110) H 05/11/25 23:46 Total Bilirubin 3.6 mg/dL (0.2-1.3) H 05/11/25 23:46 AST 39 U/L (14-36) H 05/11/25 23:46 Urine Color [place] (Yellow) H 05/11/25 23:53 Urine Appearance Cloudy (Clear) H 05/11/25 23:53 Urine Protein 2+ mg/dL (Negative) H 05/11/25 23:53 Urine Ketones Trace mg/dL (Negative) H 05/11/25 23:53 Ur Blood (Man) 1+ (Negative) H 05/11/25 23:53 Urine Nitrate Positive (Negative) H 05/11/25 23:53 Urine Bilirubin 2+ (Negative) H 05/11/25 23:53 Leukocyte Esterase Rfl 1+ FÁTIMA/UL (Negative) H 05/11/25 23:53 Urine WBC 11-20 /hpf (0-3) H 05/11/25 23:53 Ur Squamous Epith Cells Many /hpf (Few) H 05/11/25 23:53 Urine Bacteria 4+ /hpf H 05/11/25 23:53 Most Recent Suicide Severity Rating Suicide Severity Rating NO RISK INDICATED 05/11/25 21:28
--- NOTE | 2025-05-12 06:06 | ADMGEN ---
This patient, Minal White, was admitted to 2 Medical Room 249-01. Patient/family oriented to hospital policies and general routines including ID bracelet, bed and alarms, visiting hours, pain management, procedures, bathroom and other care routines, personal items, smoking policy, room service/diet, and visiting hours. Information on how to activate the Rapid Response Team has been discussed. Patient/Family are encouraged to report perceived risks to care and to ask questions if they do not understand what they are told or what they should do.
--- NOTE | 2025-05-12 07:05 | P.HP_ITS ---
H&P: HPI History of Present Illness Date/Time: 05/12/25 07:05 Chief Complaint: Abdominal pain Narrative: Minal White is a 64-year-old female with a past medical history of previous kidney stones who presents to the hospital with abdominal/back pain that started Thursday. She states that on Thursday, she initially started having left middle back pain that eventually traveled to the [facility] by that evening. On , she started experiencing lightheadedness/generalized weakness on , which she states was likely from her not being able to eat/drink anything all day Thursday and due to the abdominal pain. She describes it as a constant dull ache that does not radiate. Also endorses nausea and increased urinary frequency. She denies any associated shortness of breath, chest pain, emesis, or bowel changes. Does have a history of hysterectomy, no other abdominal surgeries. ED workup: 98.1F, 98HR, 18RR, 130/61, 97% on RA WBC 8.6, Hgb 14.6, Hct 42.4, Plt 141, Na 130, K 3.9, BUN 21, Cr 1.13, GFR 48, LFTs unremarkable, Lipase wnl UA: Owen/cloudy, 2+ protein, +Nitrate, 1+ leukocyte esterase, 11-20 urine WBC, 4+ bacteria Abd/pelvis CT: Pancreatic head and uncinate findings may be associated with pancreatitis. Correlate with amylase and lipase levels; also, gallbladder findings could represent cholecystitis. Right upper quadrant ultrasound may provide additional beneficial information. Review of Systems Review of Systems: All systems reviewed & are unremarkable except as noted in HPI and below [facility] Past Medical History Medical History (Updated 05/12/25 @ 11:05 by Burak Edwards PA-C) Family history of colon cancer in father Obesity Acute renal insufficiency Severe sepsis Sarcoidosis Surgical History Surgical History (Updated 05/12/25 @ 09:55 by Caroline Fang APRN) Status post bilateral knee replacements History of tonsillectomy H/O vaginal hysterectomy S/P ureteral stent placement 06/19/2021 Family History Family History (Updated 05/12/25 @ 06:13 by Martha Hawkins RN) Mother Alzheimer dementia Father Heart disease Carcinoma of colon Social History Social History Social History: The patient is and has 2 children. 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 She occasionally socially drinks. She is a lifelong nonsmoker. Does not use any marijuana or illicit drug. She does not have a durable power immigration attorney for healthcare. Code status full code Smoking status: Never smoker Alcohol intake: current Drinks per week: 2 Alcohol use details: RARE Substance use: never Substance use type: does not use Lack of Transportation: No Lack of Food: Never True Current Housing: I Have Housing Concerned About Future Housing: No Difficulty Paying Gas/Electric Bills: No Difficulty Paying for Meds: No Currently Unemployed: No Education: Associate Degree Difficulty w/ Childcare or Family Care: No Living arrangements: with family Spiritual care concerns: No Meds Home Medications and Allergies Home Medications ?Medication ?Instructions ?Recorded ?Confirmed ?Type multivitamin (Daily Multi-Vitamin 1 tablet PO DAILY 05/12/25 History tablet) Allergies Allergy/AdvReac Type Severity Reaction Status Date / Time meperidine AdvReac Mild Nausea and Verified 05/12/25 06:12 Vomiting Vital Signs Vital Signs - 24 hr 05/11/25 21:28 05/11/25 23:37 05/12/25 00:16 Temperature 98.1 F 98.5 F Pulse Rate 98 104 H 95 Respiratory Rate 18 16 14 Blood Pressure 155/81 H 148/74 H 155/84 H Pulse Oximetry 97 99 93 Oxygen Delivery Room Air 05/12/25 00:30 05/12/25 00:31 05/12/25 02:16 Temperature Pulse Rate 100 103 H 106 H Respiratory Rate 14 15 20 Blood Pressure 123/66 148/79 H Pulse Oximetry 93 92 92 Oxygen Delivery 05/12/25 03:01 05/12/25 03:31 05/12/25 03:46 Temperature Pulse Rate 105 H 113 H 112 H Respiratory Rate 16 16 20 Blood Pressure 135/73 142/80 H 139/73 Pulse Oximetry 96 92 93 Oxygen Delivery 05/12/25 04:01 05/12/25 04:16 05/12/25 04:31 Temperature Pulse Rate 101 H 100 100 Respiratory Rate 20 22 H 19 Blood Pressure 136/75 125/49 L 135/48 L Pulse Oximetry 95 94 92 Oxygen Delivery 05/12/25 04:46 05/12/25 06:04 05/12/25 06:37 Temperature 98.3 F Pulse Rate 98 103 H 103 H Respiratory Rate 19 20 20 Blood Pressure 124/54 L 130/61 Pulse Oximetry 93 97 97 Oxygen Delivery Room Air Exam Narrative: Gen - well appearing female in no acute respiratory distress who is nontoxic- appearing lying semi recumbent in bed HEENT - normocephalic. Atraumatic. Pupils equal round and reactive. Extraocular motions intact. Sclera clear and anicteric. Nares patent. Moist mucous membranes. Neck - neck was supple. No dominant adenopathy, thyromegaly or masses. 2+ carotid upstrokes without bruits. Chest - lungs are clear to auscultation bilaterally. No wheezes or crackles. CV - heart was regular rate and rhythm. S1-S2. No murmurs gallops or rubs. Abd - abdomen was soft. Nontender. Nondistended. Positive bowel sounds. No organomegaly or masses. Ext - no clubbing, cyanosis or edema. 2+ DP pulses bilaterally. Neuro - patient is alert and oriented x4. Strength is 5/5 in both upper and lower extremities. Cranial nerves 2-12 are intact. Speech is clear. Psych - normal mood and affect. Patient is pleasant and cooperative. Skin - warm and dry. No rashes noted. Results Labs Labs: Short CBC 05/11/25 Range/Units 23:46 WBC 8.6 (4.5-10.0) K/mm3 Hgb 14.6 D (12.0-15.0) g/dL Hct 42.4 (37.0-47.0) % Plt Count 141 L (150-375) k/mm3 BMP 05/11/25 23:46 Sodium 130 L Potassium 3.9 Chloride 100 Carbon Dioxide 21 L BUN 21 H Creatinine 1.13 H Glucose 170 H Calcium 9.6 Liver Function 05/11/25 Range/Units 23:46 Total Bilirubin 3.6 H (0.2-1.3) mg/dL AST 39 H (14-36) U/L ALT 35 (6-35) U/L Alkaline Phosphatase 103 (38-126) U/L Albumin 4.6 (3.5-5.1) g/dL Urine 05/11/25 Range/Units 23:53 Urine Color [place] H (Yellow) Urine Appearance Cloudy H (Clear) Urine pH 5.0 (5.0-9.0) Ur Specific [place] 1.027 (1.001-1.035) Urine Protein 2+ H (Negative) mg/dL Urine Glucose (UA) Negative (Negative) mg/dL Quality VTE Prophylaxis VTE prophylaxis: mechanical ordered Assessment and Plan Assessment and plan (1) Acute pancreatitis: Qualifiers: Acute pancreatitis complication: unspecified Pancreatitis type: unspecified pancreatitis type Qualified Code(s): K85.90 - Acute pancreatitis without necrosis or infection, unspecified Code(s): K85.90 - Acute pancreatitis without necrosis or infection, unspecified Status: Acute Assessment and Plan: * acute * IVF: NS 100ml/hr * trend lipase, currently: 49 * AST, ALT, total bilirubin. trend LFTs * lipid panel added * pain control with Morphine 4mg IV * Zofran prn for nausea * CT abd/pelvis: Pancreatic head and uncinate findings may be associated with pancreatitis. Correlate with amylase and lipase levels; also, gallbladder findings could represent cholecystitis. Right upper quadrant ultrasound may provide additional beneficial information. * GI consulted, awaiting recs * NPO (2) UTI (urinary tract infection): Code(s): N39.0 - Urinary tract infection, site not specified Status: Acute Assessment and Plan: * UA: [place]/cloudy, 2+ protein, +Nitrate, 1+ leukocyte esterase, 11-20 urine WBC, 4+ bacteria * UC pending * previous micro reviewed * started on (3) Cholecystitis: Code(s): K81.9 - Cholecystitis, unspecified Status: Acute Assessment and Plan: * RUQ US: Cholelithiasis with reported positive Mohan's sign by technologist. No gross wall thickening or pericholecystic fluid. The common bile duct is within normal limits. * Monitor vital signs, I and O's, check stool output, neuro status and patient is a fall risk * Monitor serum electrolytes and CBC * Monitor lactic acid * IV pain management * Gentle IV fluid resuscitation * Start Zosyn 3.375 mg every 6 hours * Consult general surgery for further evaluation, appreciate assistance and recommendation * Diet:NPO * MRCP pending
[2025-05-12 07:50] LABS: Hematocrit 40.8 % (37.0-47.0); Hemoglobin 13.3 g/dL (12.0-15.0); Immature Platelet Fraction Pct 3.6 % (0.9-11.2); Mean Corpuscular HGB Conc 32.6 g/dl (32-36); Mean Corpuscular Hemoglobin 29.5 pg (26-34); Mean Corpuscular Volume 90.5 fl (80-100); Platelet Count Result 118 k/mm3 (150-375); Red Blood Count 4.51 M/mm3 (4.2-5.4); White Blood Count 9.3 K/mm3 (4.5-10.0)
[2025-05-12 08:15] LABS: Alanine Aminotransferase 34 U/L (6-35); Albumin Level 4.0 g/dL (3.5-5.1); Alkaline Phosphatase 77 U/L (38-126); Anion Gap 5 mmol/L (4-12); Aspartate Amino Transferase 37 U/L (14-36); Bilirubin,Total 3.0 mg/dL (0.2-1.3); Blood Urea Nitrogen 18 mg/dL (7-17); Calcium 8.6 mg/dL (8.4-10.2); Carbon Dioxide 26 mmol/L (22-30); Chloride 102 mmol/L (98-107); Estimated CRCL calculation 60 ml/min; Estimated Glomerular Filt Rate 54; Glucose 140 mg/dL (65-110); Potassium 4.1 mmol/L (3.4-5.0); Sodium 133 mmol/L (137-145); Total Protein 7.3 g/dL (6.3-8.2)
[2025-05-12 08:47] LABS: Band Neutrophils Percent 12 % (0-6); Lymphocytes Absolute Manual 0.65 K/mm3 (1.1-4.5); Lymphocytes Percent Manual 7 % (18-44); Monocytes Absolute Manual 0.27 K/mm3 (0.1-0.90); Monocytes Percent Manual 3 % (3-9); Neutrophils Absolute Manual 7.81 K/mm3 (1.3-6.7); Neutrophils Percent Manual 72 % (46-73); Schistocytes None Seen; Total Cells Counted 100
--- NOTE | 2025-05-12 08:52 | P.CONGI_ITS ---
Assessment and Plan Assessment and plan (1) Nausea and vomiting: Qualifiers: Vomiting type: bilious vomiting Qualified Code(s): R11.14 - Bilious vomiting Code(s): R11.2 - Nausea with vomiting, unspecified Status: Acute (2) Appetite loss: Code(s): R63.0 - Anorexia Status: Acute (3) Lower abdominal pain: Code(s): R10.30 - Lower abdominal pain, unspecified Status: Acute (4) Abdominal bloating: Code(s): R14.0 - Abdominal distension (gaseous) Status: Acute (5) Constipation: Qualifiers: Constipation type: other constipation type Qualified Code(s): K59.09 - Other constipation Code(s): K59.00 - Constipation, unspecified Status: Acute (6) Thrombocytopenia: Code(s): D69.6 - Thrombocytopenia, unspecified Status: Acute (7) Hyponatremia: Code(s): E87.1 - Hypo-osmolality and hyponatremia Status: Acute Plan 1. Nausea/vomiting/appetite loss/acid reflux/elevated LFTs/abnormal imaging digestive-pancreatitis??: Patient has never had an EGD. Gallbladder in situ. Patient's paternal uncle had stomach cancer. Since Thursday the patient started having nausea, vomiting, acid reflux and decreased appetite. Patient states that she was having nausea and vomiting for most of the day on Thursday and a few episodes on . Denies any nausea or vomiting since admission. Around the same time she started having a decreased appetite and reflux. She denies that acid reflux is typically a problem for her and she denies any muae-lck-gucioev or prescription medication use for acid suppression. La bs today show total bilirubin 3.0, AST 37, ALT 34, alkaline phosphatase 77, albumin 4.0. On admission lipase was at 49. CT findings: Pancreatic head and uncinate findings may be associated with pancreatitis. Correlate with amylase and lipase levels; also, gallbladder findings could represent cholecystitis. Patient denies any prior history of pancreatitis. Prior to admission she denies any frequent NSAID, aspirin or anticoagulant use. DDX: Common bile duct stone versus biliary colic versus cholelithiasis with possible cholecystitis versus peptic ulcer disease versus other etiology * Normal lipase levels not consistent with pancreatitis * MRCP pending * continue supportive care with pain management and antiemetics * continue to monitor LFT's * will check direct and indirect bili * start pantoprazole 40 mg daily * Further recommendations to follow MRCP * if MRCP is normal may consider EGD 2. BLQ pain/bloating: Last colonoscopy 12/18/2023 showed diverticulosis and internal hemorrhoids but otherwise unremarkable. Patient admits to a constant bilateral lower quadrant abdominal pain since Thursday. This is also been accompanied with abdominal bloating. She states that she has not had a bowel movement since Thursday either. Prior to admission she typically was having a formed non urgent bowel movement once daily and denies any diarrhea, hematochezia, or melena. * Start Miralax 17 gm BID 3. Thrombocytopenia/hyponatremia: H/H normal except platelets at 118. Sodium 130 on admission and today 133. * Primary care team to continue monitoring and correct Thank you very much for allowing me to share in the care of this very nice patient. This report may have been done utilizing a voice recognition system. Attempts have been made to correct errors. However, there may be uncorrected grammatical, spelling, and recognition errors present. GI Consult Note Consult date/time: 05/12/25 08:52 Reason for consult: Pancreatitis HPI: Minal White is a 64 year old female with history of kidney stones, family history of colon cancer, family history of stomach cancer, hysterectomy and ureteral stent placement. She presented to the emergency room today with complaints of abdominal pain and vomiting. GI has been consulted for possible pancreatitis. Patient states that since Thursday she has been having bilateral lower quadrant abdominal pain that she describes as a constant pain. She is unable to say if it has any correlation with bowel movements or p.o. intake as she has done neither of these since Thursday. On Thursday she was having nausea and vomiting that lasted throughout most of the day and had additional episodes on but denies any nausea or vomiting since admission. Since Thursday she has been having frequent reflux which is not normally an issue for her. Denies any BMs since Thursday along with abdominal bloating. Prior to admission she was having daily bowel movements that were formed and non urgent. Denies odynophagia, dysphagia, regurgitation, early satiety, unexplained weight loss, constipation, hematochezia, or melena. She denies any NSAID, aspirin, or anticoagulant use. Patient's father diagnosed with colon cancer at age of 78 and paternal uncle diagnosed with stomach cancer. She has a rare social drinker and denies any tobacco or marijuana use. ENDOSCOPY HISTORY: EGD: Patient has never had an EGD COLONOSCOPY: 12/18/[address] Fox for family history of colon cancer Findings: A few diverticula were present in the left colon that were not actively bleeding The terminal ileum and colon was examined was normal otherwise, no colitis or polyps A few small size internal hemorrhoids seen in the rectum that were not actively bleeding Five year repeat colonoscopy recommended LABS AND STOOL STUDIES: Labs 05/12/2025: WBC 9, Hgb 13, Hct 41, MCV 91, platelets 118 Sodium 133, potassium 4.1, BUN 18, creatinine 1.02, GFR 54, calcium 8.6 Total bilirubin 3.0, AST 37, ALT 34, Alkaline Phos 77, albumin 4.0 Labs 05/11/2025: WBC 9, Hgb 15, Hct 42, MCV 86, platelets 141 Sodium 130, potassium 3.9, BUN 21, creatinine 1.13, GFR 48, calcium 9.6 Total bilirubin 3.6, AST 39, ALT 35, Alkaline Phos 103, albumin 4.6, lipase 49 IMAGING: CT abd/pelvis w/contrast 05/12/2025: FINDINGS: The bowel gas pattern is not struck with no free air or pneumatosis. Trace amount of peripancreatic fluid about the head and uncinate region. Cholelithiasis also noted with possible mild gallbladder wall thickening. Mild biliary ductal dilatation may also be present. No discrete pancreatic lesion or mass seen. No hydroureteronephrosis or grossly inflamed appendix. Patient appears to be status post hysterectomy. Adnexal regions unremarkable. Mild to moderate diverticular disease with no gross acute diverticulitis. No AAA. Mild to moderate at the sclerotic calcification the aorta. Mild fibrotic appearing changes in lung bases which are otherwise clear. Heart size normal. Moderate-sized hiatal hernia. IMPRESSION: 1. Pancreatic head and uncinate findings may be associated with pancreatitis. Correlate with amylase and lipase levels; also, gallbladder findings could represent cholecystitis. Right upper quadrant ultrasound may provide additional beneficial information. 2. Other chronic findings as above. Review of Systems 2 Constitutional: Constitutional: Reports as per HPI ENT: Reports as per HPI Cardiovascular: Cardiovascular: Reports as per HPI, Denies chest pain and Denies dyspnea Respiratory: Respiratory: Denies cough and Denies dyspnea Gastrointestinal: Gastrointestinal: Reports as per HPI Musculoskeletal: Musculoskeletal: Reports as per HPI Integumentary/Breasts: Skin/Breast: Reports as per HPI Psychiatric: Psychiatric: Reports as per HPI Endocrine: Endocrine: Reports no additional endocrine complaints Hematologic/Lymphatic: Hematologic/Lymphatic: Reports no additional hematologic/lymphatic complaints [facility] Past Medical History Medical History (Updated 05/12/25 @ 13:36 by Caroline Fang APRN) Family history of colon cancer in father Obesity Acute renal insufficiency Severe sepsis Sarcoidosis Surgical History Surgical History (Updated 05/12/25 @ 09:55 by Caroline Fang APRN) Status post bilateral knee replacements History of tonsillectomy H/O vaginal hysterectomy S/P ureteral stent placement 06/19/2021 Family History Family History (Updated 05/12/25 @ 06:13 by Martha Hawkins RN) Mother Alzheimer dementia Father Heart disease Carcinoma of colon Social History Social History Social History: The patient is and has 2 children. 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 lifelong nonsmoker. She occasionally socially drinks. She is a lifelong nonsmoker. Does not use any marijuana or illicit drug. She does not have a durable power research attorney for healthcare. Code status full code Smoking status: Never smoker Alcohol intake: current Drinks per week: 2 Alcohol use details: RARE Substance use: never Substance use type: does not use Lack of Transportation: No Lack of Food: Never True Current Housing: I Have Housing Concerned About Future Housing: No Difficulty Paying Gas/Electric Bills: No Difficulty Paying for Meds: No Currently Unemployed: No Education: Associate Degree Difficulty w/ Childcare or Family Care: No Living arrangements: with family Spiritual care concerns: No Meds Home Medications and Allergies Home Medications ?Medication ?Instructions ?Recorded ?Confirmed ?Type multivitamin (Daily Multi-Vitamin 1 tablet PO DAILY 05/12/25 History tablet) Allergies Allergy/AdvReac Type Severity Reaction Status Date / Time meperidine AdvReac Mild Nausea and Verified 05/12/25 06:12 Vomiting Vital Signs Vital Signs - 24 hr 05/11/25 21:28 05/11/25 23:37 05/12/25 00:16 Temperature 98.1 F 98.5 F Pulse Rate 98 104 H 95 Respiratory Rate 18 16 14 Blood Pressure 155/81 H 148/74 H 155/84 H Pulse Oximetry 97 99 93 Oxygen Delivery Room Air 05/12/25 00:30 05/12/25 00:31 05/12/25 02:16 Temperature Pulse Rate 100 103 H 106 H Respiratory Rate 14 15 20 Blood Pressure 123/66 148/79 H Pulse Oximetry 93 92 92 Oxygen Delivery 05/12/25 03:01 05/12/25 03:31 05/12/25 03:46 Temperature Pulse Rate 105 H 113 H 112 H Respiratory Rate 16 16 20 Blood Pressure 135/73 142/80 H 139/73 Pulse Oximetry 96 92 93 Oxygen Delivery 05/12/25 04:01 05/12/25 04:16 05/12/25 04:31 Temperature Pulse Rate 101 H 100 100 Respiratory Rate 20 22 H 19 Blood Pressure 136/75 125/49 L 135/48 L Pulse Oximetry 95 94 92 Oxygen Delivery 05/12/25 04:46 05/12/25 06:04 05/12/25 06:37 Temperature 98.3 F Pulse Rate 98 103 H 103 H Respiratory Rate 19 20 20 Blood Pressure 124/54 L 130/61 Pulse Oximetry 93 97 97 Oxygen Delivery Room Air Exam 2 Const: General: cooperative, healthy appearing, comfortable, no acute distress and well developed Orientation/consciousness: oriented to person, oriented to place, oriented to time and patient oriented x3 HENMT: Head: normal to inspection, normocephalic and atraumatic Mouth: Yes Normal oral and palatal mucosa present and Yes moist mucous membranes Eyes: General: appearance normal, both eyes and all related structures C onjunctivae: conjunctivae normal Sclera: sclerae normal Pupils: Equal, round and reactive pupils present Neck: Neck: normal visual inspection Chest: Chest palpation & inspection: normal inspection of the chest Resp: Effort & Inspection: normal respiratory effort and able to speak in complete sentences Auscultation: clear to auscultation bilaterally Cardio: Jugular venous distension: no JVD Rate: tachycardic Rhythm: r egular rhythm Heart sounds: S1 normal heart sound present and S2 normal heart sound present GI: Inspection: normal to inspection GI Palp: Yes Soft to palpation and Yes No hepatosplenomegaly present Auscultation: normal bowel sounds Rectal Exam: deferred Skin: General skin exam: normal color and no rashes or lesions noted Neuro: General: oriented to person, oriented to place, oriented to time and patient oriented x3 Cranial nerves: Yes Equal, round and reactive pupils present Speech: normal speech Extrem: General: normal to inspection and no clubbing, cyanosis or edema Psych: Appearance: grossly normal and well kempt Affect: normal affect Results Labs 05/12/25 07:28 05/12/25 07:28 Labs: Short CBC 05/11/25 05/12/25 Range/Units 23:46 07:28 WBC 8.6 9.3 (4.5-10.0) K/mm3 Hgb 14.6 D 13.3 (12.0-15.0) g/dL Hct 42.4 40.8 (37.0-47.0) % Plt Count 141 L 118 L (150-375) k/mm3 BMP 05/11/25 05/12/25 23:46 07:28 Sodium 130 L 133 L Potassium 3.9 4.1 Chloride 100 102 Carbon Dioxide 21 L 26 BUN 21 H 18 H Creatinine 1.13 H 1.02 H Glucose 170 H 140 H Calcium 9.6 8.6 Liver Function 05/11/25 05/12/25 Range/Units 23:46 07:28 Total Bilirubin 3.6 H 3.0 H (0.2-1.3) mg/dL AST 39 H 37 H (14-36) U/L ALT 35 34 (6-35) U/L Alkaline Phosphatase 103 77 (38-126) U/L Albumin 4.6 4.0 (3.5-5.1) g/dL Urine 05/11/25 Range/Units 23:53 Urine Color [place] H (Yellow) Urine Appearance Cloudy H (Clear) Urine pH 5.0 (5.0-9.0) Ur Specific [place] 1.027 (1.001-1.035) Urine Protein 2+ H (Negative) mg/dL Urine Glucose (UA) Negative (Negative) mg/dL
[2025-05-12 13:27] LABS: Cholesterol 163 mg/dL (0-200); HDL Direct 47 mg/dL; Triglycerides 187 mg/dL (<150)
[2025-05-12] MEDS: SODIUM CHLORIDE 0.9% IV 1,000 ML 100 ML IV CONT ×2 (15:26→19:47)
[2025-05-12] MEDS: PIPERACILLIN/TAZOBACTAM SOD 3.375 GM in SODIUM CHLORIDE 0.9% IV 50 ML 100 ML IVPB ×3 (15:27→23:15)
--- NOTE | 2025-05-12 18:44 | P.CONGS_ITS ---
Assessment and Plan Assessment and plan (1) Acute calculous cholecystitis: Code(s): K80.00 - Calculus of gallbladder with acute cholecystitis without obstruction Status: Acute Assessment and Plan: * I have reviewed the CT and MRCP and discussed the findings with the patient. She appears to have evidence of acute cholecystitis and has many small gallstones within the gallbladder. It is possible that she passed one of these stones to cause the elevation of liver enzymes. Also discussed possibility of small retained stone in bile duct even though MRCP was normal. I have recommended laparoscopic cholecystectomy with IOC, possible open. I discussed the procedure, risks, benefits, and alternatives. Questions answered. Will allow clear liquids tonight and plan for surgery tomorrow morning. (2) Elevated liver enzymes: Code(s): R74.8 - Abnormal levels of other serum enzymes Status: Acute (3) Thrombocytopenia: Code(s): D69.6 - Thrombocytopenia, unspecified Status: Acute History of Present Illness Consult details Consult date: 05/12/25 Reason for consult: other (cholecystitis) Requesting physician: Burak Edwards PA-C Narrative: This is a 64 yo woman who I am asked to see for cholecystitis. She presented to the ED overnight with worsening epigastric and RUQ pain. Her symptoms started on 05/10. She does not recall any particular food that she ate that caused this. She has never had symptoms like this in the past. She denies prior hx of liver disease, and only drinks 1-2 drinks socially on occasion. She was admitted for further treatment and GI consult was obtained. CT had shown cholelithiasis and cholecystitis, and there was possibility of acute pancreatitis. U/S and MRCP were obtained today. There did not appear to be any signs of choledocholithiasis on MRCP. Review of Systems 2 Review of Systems: All systems reviewed & are unremarkable except as noted in HPI and below Eyes: Eyes: Denies change in vision ENT: Denies hearing loss, Denies neck pain and Denies sore throat Cardiovascular: Cardiovascular: Denies chest pain and Denies dyspnea Respiratory: Respiratory: Denies cough, Denies dyspnea and Denies wheezing Gastrointestinal: Gastrointestinal: Reports as per HPI Genitourinary: Genitourinary: Denies hematuria and Denies dysuria Musculoskeletal: Musculoskeletal: Denies arthralgias, Denies joint swelling and Denies neck pain Allergic/Immunologic: Allergic/Immunologic: Denies wheezing [facility] Past Medical History Medical History (Updated 05/12/25 @ 18:52 by Holger Bynum DO) Family history of colon cancer in father Obesity Acute renal insufficiency Severe sepsis Sarcoidosis Surgical History Surgical History (Updated 05/12/25 @ 09:55 by Caroline Fang APRN) Status post bilateral knee replacements History of tonsillectomy H/O vaginal hysterectomy S/P ureteral stent placement 06/19/2021 Family History Family History (Updated 05/12/25 @ 06:13 by Martha Hawkins RN) Mother Alzheimer dementia Father Heart disease Carcinoma of colon Social History Social History Social History: The patient is and has 2 children. 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 lifelong nonsmoker. She occasionally socially drinks. She is a lifelong nonsmoker. Does not use any marijuana or illicit drug. She does not have a durable power deputy prosecuting attorney for healthcare. Code status full code Smoking status: Never smoker Alcohol intake: current Drinks per week: 2 Alcohol use details: RARE Substance use: never Substance use type: does not use Lack of Transportation: No Lack of Food: Never True Current Housing: I Have Housing Concerned About Future Housing: No Difficulty Paying Gas/Electric Bills: No Difficulty Paying for Meds: No Currently Unemployed: No Education: Associate Degree Difficulty w/ Childcare or Family Care: No Living arrangements: with family Spiritual care concerns: No Meds Home Medications and Allergies Home Medications ?Medication ?Instructions ?Recorded ?Confirmed ?Type multivitamin (Daily Multi-Vitamin 1 tablet PO DAILY 05/12/25 History tablet) Allergies Allergy/AdvReac Type Severity Reaction Status Date / Time meperidine AdvReac Mild Nausea and Verified 05/12/25 06:12 Vomiting Vital Signs Vital Signs - 24 hr 05/11/25 21:28 05/11/25 23:37 05/12/25 00:16 Temperature 98.1 F 98.5 F Pulse Rate 98 104 H 95 Respiratory Rate 18 16 14 Blood Pressure 155/81 H 148/74 H 155/84 H Pulse Oximetry 97 99 93 Oxygen Delivery Room Air 05/12/25 00:30 05/12/25 00:31 05/12/25 02:16 Temperature Pulse Rate 100 103 H 106 H Respiratory Rate 14 15 20 Blood Pressure 123/66 148/79 H Pulse Oximetry 93 92 92 Oxygen Delivery 05/12/25 03:01 05/12/25 03:31 05/12/25 03:46 Temperature Pulse Rate 105 H 113 H 112 H Respiratory Rate 16 16 20 Blood Pressure 135/73 142/80 H 139/73 Pulse Oximetry 96 92 93 Oxygen Delivery 05/12/25 04:01 05/12/25 04:16 05/12/25 04:31 Temperature Pulse Rate 101 H 100 100 Respiratory Rate 20 22 H 19 Blood Pressure 136/75 125/49 L 135/48 L Pulse Oximetry 95 94 92 Oxygen Delivery 05/12/25 04:46 05/12/25 06:04 05/12/25 06:37 Temperature 98.3 F Pulse Rate 98 103 H 103 H Respiratory Rate 19 20 20 Blood Pressure 124/54 L 130/61 Pulse Oximetry 93 97 97 Oxygen Delivery Room Air 05/12/25 08:00 05/12/25 08:00 05/12/25 09:35 Temperature 98.5 F Pulse Rate 125 H Respiratory Rate 20 Blood Pressure 109/45 L 118/62 Pulse Oximetry 96 92 Oxygen Delivery Room Air 05/12/25 10:15 05/12/25 12:00 05/12/25 16:00 Temperature 98.2 F 98.7 F Pulse Rate 116 H 100 Respiratory Rate 20 20 Blood Pressure 119/57 L 122/66 Pulse Oximetry 97 95 95 Oxygen Delivery Room Air Exam 2 Const: General: alert; No acute distress Orientation/consciousness: patient oriented x3 Limitations: no limitations HENMT: Head: normocephalic and atraumatic Ears: hearing grossly normal bilaterally Face/Nose/Sinus: Normal external nose present and Normal nares present Mouth: Yes Normal oral and palatal mucosa present and Yes moist mucous membranes Eyes: General: appearance normal, both eyes and all related structures C onjunctivae: conjunctivae normal Sclera: sclerae normal Pupils: Equal, round and reactive pupils present EOM: EOMs intact bilaterally Neck: Neck: normal visual inspection, full ROM, no lymphadenopathy, supple and no JVD Lymphatic: no lymphadenopathy noted Chest: Chest palpation & inspection: normal inspection of the chest Resp: Effort & Inspection: normal respiratory effort and able to speak in complete sentences Auscultation: clear to auscultation bilaterally P ercussion: percussion normal Cardio: Jugular venous distension: no JVD Rate: regular rate Rhythm: r egular rhythm Heart sounds: S1 normal heart sound present and S2 normal heart sound present Peripheral pulses: Peripheral pulses 2+ throughout GI: Inspection: normal to inspection GI Palp: Yes Soft to palpation, Yes Tenderness to palpation present (GI) (epigastric and RUQ), No Guarding due to palpation present (GI) and No Rebound tenderness present Auscultation: normal bowel sounds : General: Yes no CVA tenderness Back/Spine/Pelvis: Back: no CVA tenderness Skin: General skin exam: normal color and dry skin Neuro: General: patient oriented x3, gait normal, moves all extremities, no focal motor deficits and CN's II-XI intact bilaterally Cranial nerves: Yes Equal, round and reactive pupils present Speech: normal speech Extrem: General: normal to inspection and capillary refill normal Results Labs 05/12/25 07:28 05/12/25 07:28 Labs: Abnormal lab results 05/11/25 05/11/25 05/12/25 Range/Units 23:46 23:53 07:28 Plt Count 141 L 118 L (150-375) k/mm3 Neut % (Auto) 91.1 H (45.5-73.1) % Lymph % (Auto) 6.0 L (18.3-44.2) % Lymph # (Auto) 0.52 L (0.9-3.2) K/mm3 Absolute Neuts (auto) 7.8 H (1.3-6.7) K/mm3 Band Neutrophils % 12 H (0-6) % Lymphocytes % (Manual) 7 L (18-44) % Abs Neuts (Manual) 7.81 H (1.3-6.7) K/mm3 Abs Lymphs (Manual) 0.65 L (1.1-4.5) K/mm3 Sodium 130 L 133 L (137-145) mmol/L Carbon Dioxide 21 L (22-30) mmol/L BUN 21 H 18 H (7-17) mg/dL Creatinine 1.13 H 1.02 H (0.7-1.0) mg/dL Estimated GFR 48 L 54 L (59 - ) Glucose 170 H 140 H (65-110) mg/dL Lactic Acid (0.7-2.0) mmol/L Total Bilirubin 3.6 H 3.0 H (0.2-1.3) mg/dL Indirect Bilirubin 1.8 H (0-1.1) mg/dL AST 39 H 37 H (14-36) U/L Triglycerides 187 H (<150) mg/dL Urine Color [place] H (Yellow) Urine Appearance Cloudy H (Clear) Urine Protein 2+ H (Negative) mg/dL Urine Ketones Trace H (Negative) mg/dL Ur Blood (Man) 1+ H (Negative) Urine Nitrate Positive H (Negative) Urine Bilirubin 2+ H (Negative) Leukocyte Esterase Rfl 1+ H (Negative) FÁTIMA/UL Urine WBC 11-20 H (0-3) /hpf Ur Squamous Epith Cells Many H (Few) /hpf Urine Bacteria 4+ H /hpf 05/12/25 05/12/25 Range/Units 13:09 16:09 Plt Count (150-375) k/mm3 Neut % (Auto) (45.5-73.1) % Lymph % (Auto) (18.3-44.2) % Lymph # (Auto) (0.9-3.2) K/mm3 Absolute Neuts (auto) (1.3-6.7) K/mm3 Band Neutrophils % (0-6) % Lymphocytes % (Manual) (18-44) % Abs Neuts (Manual) (1.3-6.7) K/mm3 Abs Lymphs (Manual) (1.1-4.5) K/mm3 Sodium (137-145) mmol/L Carbon Dioxide (22-30) mmol/L BUN (7-17) mg/dL Creatinine (0.7-1.0) mg/dL Estimated GFR (59 - ) Glucose (65-110) mg/dL Lactic Acid 2.7 H 2.4 H (0.7-2.0) mmol/L Total Bilirubin (0.2-1.3) mg/dL Indirect Bilirubin (0-1.1) mg/dL AST (14-36) U/L Triglycerides (<150) mg/dL Urine Color (Yellow) Urine Appearance (Clear) Urine Protein (Negative) mg/dL Urine Ketones (Negative) mg/dL Ur Blood (Man) (Negative) Urine Nitrate (Negative) Urine Bilirubin (Negative) Leukocyte Esterase Rfl (Negative) FÁTIMA/UL Urine WBC (0-3) /hpf Ur Squamous Epith Cells (Few) /hpf Urine Bacteria /hpf Diabetes panel 05/11/25 05/12/25 Range/Units 23:46 07:28 Sodium 130 L 133 L (137-145) mmol/L Potassium 3.9 4.1 (3.4-5.0) mmol/L Chloride 100 102 (98-107) mmol/L Carbon Dioxide 21 L 26 (22-30) mmol/L BUN 21 H 18 H (7-17) mg/dL Creatinine 1.13 H 1.02 H (0.7-1.0) mg/dL Glucose 170 H 140 H (65-110) mg/dL Calcium 9.6 8.6 (8.4-10.2) mg/dL AST 39 H 37 H (14-36) U/L ALT 35 34 (6-35) U/L Alkaline Phosphatase 103 77 (38-126) U/L Total Protein 8.2 7.3 (6.3-8.2) g/dL Albumin 4.6 4.0 (3.5-5.1) g/dL Triglycerides 187 H (<150) mg/dL Calcium panel 05/11/25 05/12/25 Range/Units 23:46 07:28 Calcium 9.6 8.6 (8.4-10.2) mg/dL Albumin 4.6 4.0 (3.5-5.1) g/dL Pituitary panel 05/11/25 05/12/25 Range/Units 23:46 07:28 Sodium 130 L 133 L (137-145) mmol/L Potassium 3.9 4.1 (3.4-5.0) mmol/L Chloride 100 102 (98-107) mmol/L Carbon Dioxide 21 L 26 (22-30) mmol/L BUN 21 H 18 H (7-17) mg/dL Creatinine 1.13 H 1.02 H (0.7-1.0) mg/dL Glucose 170 H 140 H (65-110) mg/dL Calcium 9.6 8.6 (8.4-10.2) mg/dL Adrenal panel 05/11/25 05/12/25 Range/Units 23:46 07:28 Sodium 130 L 133 L (137-145) mmol/L Potassium 3.9 4.1 (3.4-5.0) mmol/L Chloride 100 102 (98-107) mmol/L Carbon Dioxide 21 L 26 (22-30) mmol/L BUN 21 H 18 H (7-17) mg/dL Creatinine 1.13 H 1.02 H (0.7-1.0) mg/dL Glucose 170 H 140 H (65-110) mg/dL Calcium 9.6 8.6 (8.4-10.2) mg/dL Total Bilirubin 3.6 H 3.0 H (0.2-1.3) mg/dL AST 39 H 37 H (14-36) U/L ALT 35 34 (6-35) U/L Alkaline Phosphatase 103 77 (38-126) U/L Total Protein 8.2 7.3 (6.3-8.2) g/dL Albumin 4.6 4.0 (3.5-5.1) g/dL All other labs normal. Imaging Additional studies: ITS Impressions Abdomen/Pelvis CT 05/12/25 07:54 IMPRESSION: 1. Pancreatic head and uncinate findings may be associated with pancreatitis. Correlate with amylase and lipase levels; also, gallbladder findings could represent cholecystitis. Right upper quadrant ultrasound may provide additional beneficial information. 2. Other chronic findings as above. NOTE: Preliminary radiologist report provided by [facility] radiologist/physician. IMPRESSION: No acute findings. Abdomen Ultrasound 05/12/25 11:02 IMPRESSION: 1. Cholelithiasis with reported positive Mohan's sign by technologist. No gross wall thickening or pericholecystic fluid. 2. The common bile duct is within normal limits. MRCP 05/12/25 12:55 IMPRESSION: 1. Cholelithiasis with distended gallbladder and gallbladder wall thickening most suggestive of cholecystitis with possible cystic duct obstruction. Hepatobiliary scintigraphy may provide additional beneficial information. 2. There is slight prominence in the proximal pancreatic duct, however the biliary ducts otherwise are normal in size. No choledocholithiasis or discrete intraductal filling defect is identified in the common bile duct or pancreatic duct. No evidence of acute pancreatitis. 3. 2.1 cm fluid-filled or cystic lesion in immediate proximity to the pancreatic portion of the common bile duct probably represents small duodenal diverticulum. Choledochocele could have a similar appearance but there appears to be a small diverticulum from the duodenum in this area on today's CT exam.
[2025-05-13] VITALS (14 sets, daily range): BP systolic 100–127; BP diastolic 48–83; PULSE 75–100; RESP 12–20; TEMP 36.3–36.6; O2SAT 96–99
[2025-05-13] MEDS: PIPERACILLIN/TAZOBACTAM SOD 3.375 GM in SODIUM CHLORIDE 0.9% IV 50 ML 100 ML IVPB ×4 (05:25→23:59)
[2025-05-13 06:02] LABS: Hematocrit 40.0 % (37.0-47.0); Hemoglobin 13.1 g/dL (12.0-15.0); Immature Platelet Fraction Pct 4.4 % (0.9-11.2); Mean Corpuscular HGB Conc 32.8 g/dl (32-36); Mean Corpuscular Hemoglobin 29.2 pg (26-34); Mean Corpuscular Volume 89.3 fl (80-100); Platelet Count Result 94 k/mm3 (150-375); Red Blood Count 4.48 M/mm3 (4.2-5.4); White Blood Count 9.4 K/mm3 (4.5-10.0)
[2025-05-13 06:24] LABS: Alanine Aminotransferase 29 U/L (6-35); Albumin Level 3.6 g/dL (3.5-5.1); Alkaline Phosphatase 104 U/L (38-126); Anion Gap 5 mmol/L (4-12); Aspartate Amino Transferase 40 U/L (14-36); Bilirubin,Total 1.2 mg/dL (0.2-1.3); Blood Urea Nitrogen 22 mg/dL (7-17); Calcium 8.7 mg/dL (8.4-10.2); Carbon Dioxide 23 mmol/L (22-30); Chloride 106 mmol/L (98-107); Estimated CRCL calculation 63 ml/min; Estimated Glomerular Filt Rate 58; Glucose 96 mg/dL (65-110); Potassium 3.2 mmol/L (3.4-5.0); Sodium 134 mmol/L (137-145); Total Protein 6.8 g/dL (6.3-8.2)
[2025-05-13 06:25] LABS: Band Neutrophils Percent 3 % (0-6); Eosinophils Absolute Manual 0.09 K/mm3 (0.02-0.50); Eosinophils Percent Manual 1 % (0-4); Lymphocytes Absolute Manual 0.75 K/mm3 (1.1-4.5); Lymphocytes Percent Manual 8 % (18-44); Monocytes Absolute Manual 0.75 K/mm3 (0.1-0.90); Monocytes Percent Manual 8 % (3-9); Neutrophils Absolute Manual 7.80 K/mm3 (1.3-6.7); Neutrophils Percent Manual 80 % (46-73); Total Cells Counted 100
[2025-05-13 06:29] LABS: Basophils Absolute Manual 0.00 K/mm3 (0.0-0.1); Basophils Percent Manual 0 % (0-1); Schistocytes None Seen
[2025-05-13] MEDS: LACTATED RINGERS 1,000 ML 30 ML IV CONT ×2 (08:00→10:19)
--- NOTE | 2025-05-13 08:01 | WPDHPUPDATE1 ---
History and Physical Update Update Date/Time: 05/13/25 08:01 History and Physical has been reviewed, including an updated exam of the patient. There are NO changes in the patient's condition. Risks, benefits, and alternatives have been discussed and questions answered. Patient agrees to proceed with procedure.
--- NOTE | 2025-05-13 08:02 | P.PNAN_ITS ---
Anes - Initial Pre Proc Eval Procedure: Operation Date: 05/13/25 08:00 Proposed Procedures p Laparoscopic Cholecystectomy - Holger Bynum DO Date/Time: 05/13/25 08:02 Surgeon: Lupe Delvalle DO Pre Op Diagnosis: Pancreatitis Patient Data Age: 64 Gender: F Height: 1.68 m Weight: 106 kg Last Vital Signs Temp 36.4 C 05/13/25 04:00 Pulse 100 05/13/25 04:00 Resp 20 05/13/25 04:00 BP 122/73 05/13/25 04:00 Pulse Ox 98 05/13/25 04:00 O2 Del Method Room Air 05/12/25 20:00 Allergies Allergy/AdvReac Type Severity Reaction Status Date / Time meperidine AdvReac Mild Nausea and Verified 05/12/25 06:12 Vomiting Home Medications ?Medication ?Instructions ?Recorded ?Confirmed ?Type multivitamin (Daily Multi-Vitamin 1 tablet PO DAILY 05/12/25 History tablet) Laboratory Tests 05/12/25 05/12/25 05/12/25 07:28 13:09 16:09 WBC 9.3 K/mm3 (4.5-10.0) RBC 4.51 M/mm3 (4.2-5.4) Hgb 13.3 g/dL (12.0-15.0) Hct 40.8 % (37.0-47.0) MCV 90.5 fl (80-100) MCH 29.5 pg (26-34) MCHC 32.6 g/dl (32-36) RDW 12.9 % (11.5-14.5) Plt Count 118 L k/mm3 (150-375) MPV 10.4 fl (7.4-10.4) Immature Gran % (Auto) Not Reportable Neut % (Auto) Not Reportable Lymph % (Auto) Not Reportable Power % (Auto) Not Reportable Eos % (Auto) Not Reportable Baso % (Auto) Not Reportable Lymph # (Auto) Not Reportable Power # (Auto) Not Reportable Eos # (Auto) Not Reportable Baso # (Auto) Not Reportable Abs Immat Gran (auto) Not Reportable Absolute Neuts (auto) Not Reportable Absolute Nucleated RBC Not Reportable Total Counted 100 Neutrophils % (Manual) 72 % (46-73) Band Neutrophils % 12 H % (0-6) Lymphocytes % (Manual) 7 L % (18-44) Monocytes % (Manual) 3 % (3-9) Eosinophils % (Manual) Basophils % (Manual) Nucleated RBC % Not Reportable Abs Neuts (Manual) 7.81 H K/mm3 (1.3-6.7) Abs Lymphs (Manual) 0.65 L K/mm3 (1.1-4.5) Abs Monocytes (Manual) 0.27 K/mm3 (0.1-0.90) Absolute Eos (Manual) Abs Basophils (Manual) Platelet Estimate Slightly decreased (Adequate) % Immature Plt Fraction 3.6 % (0.9-11.2) Schistocytes None seen Sodium 133 L mmol/L (137-145) Potassium 4.1 mmol/L (3.4-5.0) Chloride 102 mmol/L (98-107) Carbon Dioxide 26 mmol/L (22-30) Anion Gap 5 mmol/L (4-12) BUN 18 H mg/dL (7-17) Creatinine 1.02 H mg/dL (0.7-1.0) Estim Creat Clear Calc 60 ml/min Estimated GFR 54 L (59 - ) Glucose 140 H mg/dL (65-110) Lactic Acid 2.7 H mmol/L 2.4 H mmol/L (0.7-2.0) (0.7-2.0) Calcium 8.6 mg/dL (8.4-10.2) Total Bilirubin 3.0 H mg/dL (0.2-1.3) Direct Bilirubin 0.0 mg/dL (0-0.3) Indirect Bilirubin 1.8 H mg/dL (0-1.1) AST 37 H U/L (14-36) ALT 34 U/L (6-35) Alkaline Phosphatase 77 U/L (38-126) Total Protein 7.3 g/dL (6.3-8.2) Albumin 4.0 g/dL (3.5-5.1) Triglycerides 187 H mg/dL (<150) Cholesterol 163 mg/dL (0-200) LDL Cholesterol Direct 57 mg/dL HDL Direct 47 mg/dL 05/13/25 05:29 WBC 9.4 K/mm3 (4.5-10.0) RBC 4.48 M/mm3 (4.2-5.4) Hgb 13.1 g/dL (12.0-15.0) Hct 40.0 % (37.0-47.0) MCV 89.3 fl (80-100) MCH 29.2 pg (26-34) MCHC 32.8 g/dl (32-36) RDW 13.2 % (11.5-14.5) Plt Count 94 L k/mm3 (150-375) MPV 11.3 H fl (7.4-10.4) Immature Gran % (Auto) Not Reportable Neut % (Auto) Not Reportable Lymph % (Auto) Not Reportable Power % (Auto) Not Reportable Eos % (Auto) Not Reportable Baso % (Auto) Not Reportable Lymph # (Auto) Not Reportable Power # (Auto) Not Reportable Eos # (Auto) Not Reportable Baso # (Auto) Not Reportable Abs Immat Gran (auto) Not Reportable Absolute Neuts (auto) Not Reportable Absolute Nucleated RBC Not Reportable Total Counted 100 Neutrophils % (Manual) 80 H % (46-73) Band Neutrophils % 3 % (0-6) Lymphocytes % (Manual) 8 L % (18-44) Monocytes % (Manual) 8 % (3-9) Eosinophils % (Manual) 1 % (0-4) Basophils % (Manual) 0 % (0-1) Nucleated RBC % Not Reportable Abs Neuts (Manual) 7.80 H K/mm3 (1.3-6.7) Abs Lymphs (Manual) 0.75 L K/mm3 (1.1-4.5) Abs Monocytes (Manual) 0.75 K/mm3 (0.1-0.90) Absolute Eos (Manual) 0.09 K/mm3 (0.02-0.50) Abs Basophils (Manual) 0.00 K/mm3 (0.0-0.1) Platelet Estimate Slightly decreased (Adequate) % Immature Plt Fraction 4.4 % (0.9-11.2) Schistocytes None seen Sodium 134 L mmol/L (137-145) Potassium 3.2 L mmol/L (3.4-5.0) Chloride 106 mmol/L (98-107) Carbon Dioxide 23 mmol/L (22-30) Anion Gap 5 mmol/L (4-12) BUN 22 H mg/dL (7-17) Creatinine 0.97 mg/dL (0.7-1.0) Estim Creat Clear Calc 63 ml/min Estimated GFR 58 L (59 - ) Glucose 96 mg/dL (65-110) Lactic Acid Calcium 8.7 mg/dL (8.4-10.2) Total Bilirubin 1.2 mg/dL (0.2-1.3) Direct Bilirubin Indirect Bilirubin AST 40 H U/L (14-36) ALT 29 U/L (6-35) Alkaline Phosphatase 104 U/L (38-126) Total Protein 6.8 g/dL (6.3-8.2) Albumin 3.6 g/dL (3.5-5.1) Triglycerides Cholesterol LDL Cholesterol Direct HDL Direct Patient hx anesthesia problems: none Family hx anesthesia problems: none Results Review: All pre-operative results and documents have been reviewed as part of the pre- operative evaluation. [facility] Past Medical History Medical History (Updated 05/12/25 @ 18:52 by Holger Bynum DO) Family history of colon cancer in father Obesity Acute renal insufficiency Severe sepsis Sarcoidosis Surgical History Surgical History (Updated 05/12/25 @ 09:55 by Caroline Fang APRN) Status post bilateral knee replacements History of tonsillectomy H/O vaginal hysterectomy S/P ureteral stent placement 06/19/2021 Family History Family History (Updated 05/12/25 @ 06:13 by Martha Hawkins RN) Mother Alzheimer dementia Father Heart disease Carcinoma of colon Social History Social History Social History: The patient is and has 2 children. 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 She occasionally socially drinks. She is a lifelong nonsmoker. Does not use any marijuana or illicit drug. She does not have a durable power prosecuting attorney for healthcare. Code status full code Smoking status: Never smoker Alcohol intake: current Drinks per week: 2 Alcohol use details: RARE Substance use: never Substance use type: does not use Lack of Transportation: No Lack of Food: Never True Current Housing: I Have Housing Concerned About Future Housing: No Difficulty Paying Gas/Electric Bills: No Difficulty Paying for Meds: No Currently Unemployed: No Education: Associate Degree Difficulty w/ Childcare or Family Care: No Living arrangements: with family Spiritual care concerns: No Anes - Eval Final PreProcedure Day of Procedure 05/13/25 08:02 Patient weight: obese Heart: regular rate and rhythm Lungs: clear to auscultation Airway: Mallampati scale class II Neurological: alert and oriented Last oral intake: >/= 8 hours ASA classification: III Emergent: no Anesthetic plan: proceed Anesthesia type and monitoring: general ETT and standard monitoring Results Review: All pre-operative results and documents have been reviewed as part of the pre- operative evaluation. Informed Consent: The patient's anesthetic plan and its attendant risks and benefits were discussed with the patient/family/POA. Questions were solicited and answers provided to the satisfaction of the patient/family/POA.
--- NOTE | 2025-05-13 08:06 | P.PNIM_ITS ---
Assessment and Plan Assessment and Plan (1) Acute pancreatitis: Qualifiers: Acute pancreatitis complication: unspecified Pancreatitis type: unspecified pancreatitis type Qualified Code(s): K85.90 - Acute pancreatitis without necrosis or infection, unspecified Code(s): K85.90 - Acute pancreatitis without necrosis or infection, unspecified Status: Acute Assessment and Plan: * acute * IVF: NS 100ml/hr * trend lipase, currently: 49 * AST, ALT, total bilirubin. trend LFTs * lipid panel added * pain control with Morphine 4mg IV * Zofran prn for nausea * CT abd/pelvis: Pancreatic head and uncinate findings may be associated with pancreatitis. Correlate with amylase and lipase levels; also, gallbladder findings could represent cholecystitis. Right upper quadrant ultrasound may provide additional beneficial information. * GI consulted, awaiting recs * NPO * 05/13- to or today for laparoscopic cholecystectomy with Dr Bynum. GI note reviewed: Lipase is normal and MRCP does not show acute pancreatitis. She has strong clinical and imaging evidence of cholecystitis with no concomitant pancreatitis of choledocholithiasis... (2) UTI (urinary tract infection): Code(s): N39.0 - Urinary tract infection, site not specified Status: Acute Assessment and Plan: * UA: [place]/cloudy, 2+ protein, +Nitrate, 1+ leukocyte esterase, 11-20 urine WBC, 4+ bacteria * UC pending * previous micro reviewed * on Zosyn 3.375 mg every 6 hours (3) Cholecystitis: Code(s): K81.9 - Cholecystitis, unspecified Status: Deleted Assessment and Plan: * RUQ US: Cholelithiasis with reported positive Mohan's sign by technologist. No gross wall thickening or pericholecystic fluid. The common bile duct is within normal limits. * Monitor vital signs, I and O's, check stool output, neuro status and patient is a fall risk * Monitor serum electrolytes and CBC * Monitor lactic acid * IV pain management * Gentle IV fluid resuscitation * Start Zosyn 3.375 mg every 6 hours * Consult general surgery for further evaluation, appreciate assistance and recommendation * Diet:NPO * MRCP pending Medical Record Review I have reviewed the following patient records and this information was taken into consideration when formulating the assessment and plan.: previous labs Time Spent With Patient Time with patient: 25 - 35 minutes Subjective Date/time seen: 05/13/25 08:06 Interval history: Minal White is a 64-year-old female with a past medical history of previous kidney stones who presents to the hospital with abdominal/back pain that started Thursday. ED workup: 98.1F, 98HR, 18RR, 130/61, 97% on RA WBC 8.6, Hgb 14.6, Hct 42.4, Plt 141, Na 130, K 3.9, BUN 21, Cr 1.13, GFR 48, LFTs unremarkable, Lipase wnl UA: [place]/cloudy, 2+ protein, +Nitrate, 1+ leukocyte esterase, 11-20 urine WBC, 4+ bacteria Abd/pelvis CT: Pancreatic head and uncinate findings may be associated with pancreatitis. Correlate with amylase and lipase levels; also, gallbladder findings could represent cholecystitis. Right upper quadrant ultrasound may provide additional beneficial information. 05/13- to or today for laparoscopic cholecystectomy with Dr Bynum. Review of Systems Review of Systems: All systems reviewed & are unremarkable except as noted in HPI and below Exam Narrative: Gen - well appearing female in no acute respiratory distress HEENT - normocephalic. Atraumatic. Pupils equal round and reactive. Extraocular motions intact. Sclera clear and anicteric. Nares patent. Moist mucous membranes. Neck - neck was supple. No dominant adenopathy, thyromegaly or masses. 2+ carotid upstrokes without bruits. Chest - lungs are clear to auscultation bilaterally. No wheezes or crackles. CV - heart was regular rate and rhythm. S1-S2. No murmurs gallops or rubs. Abd - abdomen was soft. Nontender. Nondistended. Positive bowel sounds. Ext - no clubbing, cyanosis or edema. 2+ DP pulses bilaterally. Neuro - patient is alert and oriented x4. Strength is 5/5 in both upper and lower extremities. Cranial nerves 2-12 are intact. Speech is clear. Psych - normal mood and affect. Patient is pleasant and cooperative. Skin - warm and dry. No rashes noted. Const: General: comfortable Objective Data Vital Signs Vital Signs: Vital Signs - 24 hr 05/12/25 09:35 05/12/25 10:15 05/12/25 12:00 Temperature 98.2 F Pulse Rate 116 H Respiratory Rate 20 Blood Pressure 118/62 119/57 L Pulse Oximetry 92 97 95 Oxygen Delivery Room Air 05/12/25 16:00 05/12/25 20:00 05/12/25 20:00 Temperature 98.7 F 98.9 F Pulse Rate 100 92 92 Respiratory Rate 20 20 20 Blood Pressure 122/66 118/62 Pulse Oximetry 95 97 97 Oxygen Delivery Room Air 05/13/25 00:00 05/13/25 04:00 Temperature 97.6 F 97.6 F Pulse Rate 86 100 Respiratory Rate 20 20 Blood Pressure 104/48 L 122/73 Pulse Oximetry 97 98 Oxygen Delivery Intake/Output Intake/Output: Intake & Output 05/10/25 05/11/25 05/12/25 05/13/25 23:59 23:59 23:59 23:59 Intake Total 2825 50 Balance 2825 50 Meds/Results Medications: Active Medications Generic Name Dose Route Start Last Admin Trade Name Freq PRN Reason Stop Dose Admin Fentanyl Citrate 25 mcg 05/13/25 08:02 Fentanyl Citrate Inj (*Crx) 100 Mcg/2 Ml Vial IV PUSH Q2M PRN Pain Piperacillin Sod/Tazobactam 50 mls @ 100 mls/hr 05/12/25 13:05 05/13/25 05:55 Sod 3.375 gm/ Sodium Chloride IVPB Infused Q6HR PATIENCE Infusion Sodium Chloride 1,000 mls @ 100 mls/hr 05/12/25 13:05 05/12/25 19:47 Normal Saline Iv IV CONT 100 mls/hr .Q10H PATIENCE Administration Lactated Ringer's 1,000 mls @ 30 mls/hr 05/13/25 08:05 Lr - Lactated Ringers Iv IV CONT .Q24H PATIENCE Lactated Ringer's 1,000 mls @ 30 mls/hr 05/13/25 08:05 Lr - Lactated Ringers Iv IV CONT .Q24H PATIENCE Morphine Sulfate 4 mg 05/12/25 03:13 05/12/25 06:29 Morphine Sulfate (*Crx) 4 Mg/Ml Inj IV PUSH 4 mg Q2H PRN Administration Pain Rated 7-10 Multivitamins Therapeutic 1 tablet 05/13/25 09:00 Multivitamins Therapeutic Tab (*Bkc) PO DAILY PATIENCE Ondansetron HCl 4 mg 05/12/25 03:13 Ondansetron Inj 4 Mg/2 Ml Vial IV PUSH Q4H PRN Nausea Ondansetron HCl 4 mg 05/13/25 08:02 Ondansetron Inj 4 Mg/2 Ml Vial IV PUSH ONCE PRN Nausea Pantoprazole Sodium 40 mg 05/13/25 09:00 Pantoprazole 40 Mg Tablet PO QAM [facility] Radiology Results: ITS Impressions Abdomen/Pelvis CT 05/12/25 07:54 IMPRESSION: 1. Pancreatic head and uncinate findings may be associated with pancreatitis. Correlate with amylase and lipase levels; also, gallbladder findings could represent cholecystitis. Right upper quadrant ultrasound may provide additional beneficial information. 2. Other chronic findings as above. NOTE: Preliminary radiologist report provided by [facility] radiologist/physician. IMPRESSION: No acute findings. Abdomen Ultrasound 05/12/25 11:02 IMPRESSION: 1. Cholelithiasis with reported positive Mohan's sign by technologist. No gross wall thickening or pericholecystic fluid. 2. The common bile duct is within normal limits. MRCP 05/12/25 12:55 IMPRESSION: 1. Cholelithiasis with distended gallbladder and gallbladder wall thickening most suggestive of cholecystitis with possible cystic duct obstruction. He patobiliary scintigraphy may provide additional beneficial information. 2. There is slight prominence in the proximal pancreatic duct, however the biliary ducts otherwise are normal in size. No choledocholithiasis or discrete intraductal filling defect is identified in the common bile duct or pancreatic duct. No evidence of acute pancreatitis. 3. 2.1 cm fluid-filled or cystic lesion in immediate proximity to the pancreatic portion of the common bile duct probably represents small duodenal diverticulum. Choledochocele could have a similar appearance but there appears to be a small diverticulum from the duodenum in this area on today's CT exam. Labs Labs: Laboratory Results - last 24 hr 05/12/25 05/12/25 05/12/25 07:28 13:09 16:09 WBC 9.3 RBC 4.51 Hgb 13.3 Hct 40.8 MCV 90.5 MCH 29.5 MCHC 32.6 RDW 12.9 Plt Count 118 L MPV 10.4 Immature Gran % (Auto) Not Reportable Neut % (Auto) Not Reportable Lymph % (Auto) Not Reportable [place] % (Auto) Not Reportable Eos % (Auto) Not Reportable Baso % (Auto) Not Reportable Lymph # (Auto) Not Reportable [place] # (Auto) Not Reportable Eos # (Auto) Not Reportable Baso # (Auto) Not Reportable Abs Immat Gran (auto) Not Reportable Absolute Neuts (auto) Not Reportable Absolute Nucleated RBC Not Reportable Total Counted 100 Neutrophils % (Manual) 72 Band Neutrophils % 12 H Lymphocytes % (Manual) 7 L Monocytes % (Manual) 3 Eosinophils % (Manual) Basophils % (Manual) Nucleated RBC % Not Reportable Abs Neuts (Manual) 7.81 H Abs Lymphs (Manual) 0.65 L Abs Monocytes (Manual) 0.27 Absolute Eos (Manual) Abs Basophils (Manual) Platelet Estimate Slightly decreased % Immature Plt Fraction 3.6 Schistocytes None seen Sodium 133 L Potassium 4.1 Chloride 102 Carbon Dioxide 26 Anion Gap 5 BUN 18 H Creatinine 1.02 H Estim Creat Clear Calc 60 Estimated GFR 54 L Glucose 140 H Lactic Acid 2.7 H 2.4 H Calcium 8.6 Total Bilirubin 3.0 H Direct Bilirubin 0.0 Indirect Bilirubin 1.8 H AST 37 H ALT 34 Alkaline Phosphatase 77 Total Protein 7.3 Albumin 4.0 Triglycerides 187 H Cholesterol 163 LDL Cholesterol Direct 57 HDL Direct 47 05/13/25 05:29 WBC 9.4 RBC 4.48 Hgb 13.1 Hct 40.0 MCV 89.3 MCH 29.2 MCHC 32.8 RDW 13.2 Plt Count 94 L MPV 11.3 H Immature Gran % (Auto) Not Reportable Neut % (Auto) Not Reportable Lymph % (Auto) Not Reportable [place] % (Auto) Not Reportable Eos % (Auto) Not Reportable Baso % (Auto) Not Reportable Lymph # (Auto) Not Reportable [place] # (Auto) Not Reportable Eos # (Auto) Not Reportable Baso # (Auto) Not Reportable Abs Immat Gran (auto) Not Reportable Absolute Neuts (auto) Not Reportable Absolute Nucleated RBC Not Reportable Total Counted 100 Neutrophils % (Manual) 80 H Band Neutrophils % 3 Lymphocytes % (Manual) 8 L Monocytes % (Manual) 8 Eosinophils % (Manual) 1 Basophils % (Manual) 0 Nucleated RBC % Not Reportable Abs Neuts (Manual) 7.80 H Abs Lymphs (Manual) 0.75 L Abs Monocytes (Manual) 0.75 Absolute Eos (Manual) 0.09 Abs Basophils (Manual) 0.00 Platelet Estimate Slightly decreased % Immature Plt Fraction 4.4 Schistocytes None seen Sodium 134 L Potassium 3.2 L Chloride 106 Carbon Dioxide 23 Anion Gap 5 BUN 22 H Creatinine 0.97 Estim Creat Clear Calc 63 Estimated GFR 58 L Glucose 96 Lactic Acid Calcium 8.7 Total Bilirubin 1.2 Direct Bilirubin Indirect Bilirubin AST 40 H ALT 29 Alkaline Phosphatase 104 Total Protein 6.8 Albumin 3.6 Triglycerides Cholesterol LDL Cholesterol Direct HDL Direct Quality VTE Prophylaxis VTE prophylaxis: mechanical ordered
[2025-05-13] MEDS: BUPIVACAINE/EPINEPHRINE 0.5% 50 ML VIAL 30 ML INFILTRATE (08:38)
--- NOTE | 2025-05-13 08:40 | S_PTH ---
PATIENT: Minal White LOC: [id number] U#:[id number] AGE/SX: 64/F ROOM: 249 RE05/12/[address]: Gillian Dumont APRN : 1960 BED: 01 DIS: 05/14/2025 SPEC #: [id number] RECD: 05/15/25 08:08 STATUS: ALEA RERylee #: [id number] VIRGILIO: 05/13/25 08:[address]: Holger Bynum DEPT: [facility] Surgical RECD BY: Chioma Block ENTERED: 05/15/25 08:09 SP TYPE: Surgical OTHR DR: ZBIGNIEW Ramirez DO Bryan C. Siegfried, MD Tissues: A - Gallbladder Procedures: Hematoxylin and Eosin Stain Gross and Microscopic Level 3
--- NOTE | 2025-05-13 09:20 | W.PM.PROC2 ---
Procedure Note - Detailed Date of Procedure 05/13/25 Pre-op Diagnosis Acute calculous cholecystitis, elevated liver enzymes Post-op Diagnosis Same Procedure Performed Laparoscopic cholecystectomy with cholangiogram Surgeon Holger Bynum, Anesthesia General and Local (0.5% bupivacaine) Indications This is a 64-year-old woman who presented to the emergency department with epigastric and right upper quadrant pain. Her initial CT showed possible pancreatitis and acute calculous cholecystitis, but lipase level was normal. Her liver enzymes were slightly elevated. She then underwent gallbladder ultrasound and MRCP. There were findings for cholecystitis but no signs of choledocholithiasis. Discussions were made with the patient about treatment options and decision was made to proceed with laparoscopic cholecystectomy with cholangiography, possible open. Findings Laparoscopic cholecystectomy with cholangiogram was performed. The gallbladder appeared acutely inflamed and had some evidence of gangrenous changes. The gallbladder wall was hyperemic. The cystic duct appeared normal in size. There were many small stones within the gallbladder. Intraoperative cholangiogram was obtained using Omnipaque contrast and the images were sent to Radiology for interpretation. There did appear to be a small filling defect but this was too small to determine whether it was a gas bubble or small stone. Contrast was visualized entering into the duodenum. No other abnormal intraoperative findings were noted. The gallbladder was removed and sent to the lab for pathology. Description of Procedure Procedure as well as risks, benefits, and alternatives were discussed with patient. Written consent was obtained and placed in chart prior to procedure. The patient was brought back to surgical suite. Patient was placed in supine position on operating table. Time-out was done to confirm patient and procedure. Patient was then intubated by the anesthesia department. Abdomen was prepped and draped in sterile fashion using chlorhexidine prep. 0.5% bupivacaine with epinephrine was infiltrated at each site of incision. A 5 millimeter incision was made near the umbilicus, and a 5 millimeter Optiview trocar was advanced through the abdominal layers under direct visualization. Once inside the abdominal cavity, carbon dioxide was insufflated to create a pneumoperitoneum. The camera was inserted and the abdomen was inspected. No immediate abnormalities were identified. The patient was placed in reverse Trendelenburg position and rotated slightly to the left. An 11 millimeter incision was made in the subxiphoid region, and an 11 millimeter trocar was inserted under direct visualization. Two 5 millimeter incisions were made in the right upper quadrant, and two 5 millimeter trocars were inserted under direct visualization. The gallbladder was identified and grasped at the fundus and retracted superiorly. It was then grasped at the infundibulum retracted laterally. Careful dissection around the neck of the gallbladder was performed using blunt dissection with a [place] grasper and hook electrocautery. The cystic duct was identified, and a window was created behind it. The cystic artery was also identified and a window was created behind it. The critical view of safety was identified, visualizing the cystic duct running directly into the neck of the gallbladder, and the cystic artery running directly into the wall of the gallbladder. A 5 millimeter clip health information technologist was then used to place 2 clips proximally and 1 clip distally on the cystic artery. It was then transected using endoscopic scissors. The William clamp was then placed across the distal neck of the gallbladder and the William cholangiocatheter was advanced into the distal neck of the gallbladder. The catheter aspirated and flushed with saline with ease. The patient was then flattened out in bed and fluoroscopy was used to obtain an intraoperative cholangiogram with Omnipaque contrast. The images were sent to Radiology for interpretation. The catheter was then removed and the patient was placed back in reverse Trendelenburg position. A 5 mm clip health information technologist was used to place 2 clips proximally 1 clip distally on the cystic duct. It was then transected using endoscopic scissors. Once safely away from the azalea hepatitis, the gallbladder was dissected free from the liver bed using hook electrocautery. Hemostasis was achieved along the way. The gallbladder was removed completely and then removed through the subxiphoid port. The liver bed was then inspected. Hemostasis appeared adequate, and our clips appeared secure. The area was gently irrigated with sterile saline. No other abnormalities were seen. The patient was flattened out in bed, and 1 final inspection was made around the abdominal cavity. The subxiphoid port was removed, and a Gaetano [place]il[place] cone was used to approximate the fascia with an 0-Vicryl simple interrupted suture. The remaining ports were then removed under direct visualization, the camera was removed, and the pneumoperitoneum was released. The skin of the incisions was approximated using 4-0 Monocryl subcuticular sutures. Exofin glue was applied on top. The patient was then awakened from anesthesia, extubated, and transferred to recovery. Estimated Blood Loss 50 Pathology Yes (Gallbladder) Complications No immediate complications Condition Stable Disposition Floor [facility] Billing Surgery - Charge Forward: Surgery Billing
[2025-05-13] MEDS: fentaNYL CITRATE INJ (*CRX) 100 MCG/2 ML VIAL 25 MCG IV PUSH ×2 (10:00→10:15)
[2025-05-13] MEDS: MULTIVITAMINS THERAPEUTIC TAB (*BKC) 1 TABLET PO (11:46)
[2025-05-13] MEDS: PANTOPRAZOLE 40 MG TABLET PO (11:46)
[2025-05-13] MEDS: IBUPROFEN IV 800 MG/200 ML 800 MG/200 ML BAG 400 MG IVPB (14:34)
--- NOTE | 2025-05-13 18:55 | PC.NURSE ---
Ship Liner reviewed Carolin YOON's charting and agrees with it.
[2025-05-14 04:34] VITALS: BP 112/48; PULSE 66; RESP 18; TEMP 36.2; O2SAT 98
[2025-05-14 05:50] LABS: Hematocrit 36.5 % (37.0-47.0); Hemoglobin 11.9 g/dL (12.0-15.0); Immature Granulocyte Percent A 0.8 % (0-0.5); Immature Platelet Fraction Pct 6.2 % (0.9-11.2); Lymphocytes Absolute Auto 2.31 K/mm3 (0.9-3.2); Mean Corpuscular HGB Conc 32.6 g/dl (32-36); Mean Corpuscular Hemoglobin 29.2 pg (26-34); Mean Corpuscular Volume 89.5 fl (80-100); Nucleated Red Blood Cells Absolute Auto 0.000 K/mm3 (0.0-0.012); Nucleated Red Blood Cells Perc 0.0 % (0.0-0.2); Platelet Count Result 110 k/mm3 (150-375); Red Blood Count 4.08 M/mm3 (4.2-5.4); White Blood Count 8.8 K/mm3 (4.5-10.0)
[2025-05-14] MEDS: PIPERACILLIN/TAZOBACTAM SOD 3.375 GM in SODIUM CHLORIDE 0.9% IV 50 ML 100 ML IVPB ×2 (06:00→11:02)
[2025-05-14 06:09] LABS: Alanine Aminotransferase 37 U/L (6-35); Albumin Level 3.5 g/dL (3.5-5.1); Alkaline Phosphatase 118 U/L (38-126); Anion Gap 4 mmol/L (4-12); Aspartate Amino Transferase 43 U/L (14-36); Bilirubin,Total 0.9 mg/dL (0.2-1.3); Blood Urea Nitrogen 19 mg/dL (7-17); Calcium 9.1 mg/dL (8.4-10.2); Carbon Dioxide 24 mmol/L (22-30); Chloride 107 mmol/L (98-107); Estimated CRCL calculation 66 ml/min; Estimated Glomerular Filt Rate > 60; Glucose 105 mg/dL (65-110); Potassium 3.4 mmol/L (3.4-5.0); Sodium 135 mmol/L (137-145); Total Protein 7.0 g/dL (6.3-8.2)
[2025-05-14] MEDS: MULTIVITAMINS THERAPEUTIC TAB (*BKC) 1 TABLET PO (08:45)
[2025-05-14] MEDS: PANTOPRAZOLE 40 MG TABLET PO (08:45)
--- NOTE | 2025-05-14 10:34 | P.DS_ITS ---
DS: Admitting Diagnosis Discharge Date 05/14 Admitting Diagnosis abd pain DS: Discharge Diagnosis Discharge Diagnosis (1) Acute pancreatitis: Qualifiers: Acute pancreatitis complication: unspecified Pancreatitis type: unspecified pancreatitis type Qualified Code(s): K85.90 - Acute pancreatitis without necrosis or infection, unspecified Code(s): K85.90 - Acute pancreatitis without necrosis or infection, unspecified Status: Acute (2) UTI (urinary tract infection): Code(s): N39.0 - Urinary tract infection, site not specified Status: Acute (3) Cholecystitis: Code(s): K81.9 - Cholecystitis, unspecified Status: Deleted DS: Summary Hospital Course Hospital Course: Minal White is a 64-year-old female with a past medical history of previous ki dney stones who presents to the hospital with abdominal/back pain that started Thursday. ED workup: 98.1F, 98HR, 18RR, 130/61, 97% on RA WBC 8.6, Hgb 14.6, Hct 42.4, Plt 141, Na 130, K 3.9, BUN 21, Cr 1.13, GFR 48, LFTs unremarkable, Lipase wnl UA: [place]/cloudy, 2+ protein, +Nitrate, 1+ leukocyte esterase, 11-20 urine WBC, 4+ bacteria Abd/pelvis CT: Pancreatic head and uncinate findings may be associated with pancreatitis. Correlate with amylase and lipase levels; also, gallbladder findings could represent cholecystitis. Right upper quadrant ultrasound may provide additional beneficial information. 05/13- laparoscopic cholecystectomy with Dr Bynum. 05/14 doing well. Eating and drinking ok. Pain is well controlled, no nausea/vomiting. Urine culture growing e coli. will downgrade to augmentin for 4 more days. f/u with surgery as per DR instructions. Status at Discharge Functional status at discharge: independent ambulation Overall status at discharge: patient is progressing back to baseline Time Spent with Patient Time attestation: Total time spent providing and/or coordinating discharge services: Time spent: Less than 30 minutes Exam Narrative: Gen - well appearing female in no acute respiratory distress HEENT - normocephalic. Atraumatic. Pupils equal round and reactive. Extraocular motions intact. Sclera clear and anicteric. Nares patent. Moist mucous membranes. Neck - neck was supple. No dominant adenopathy, thyromegaly or masses. 2+ carotid upstrokes without bruits. Chest - lungs are clear to auscultation bilaterally. No wheezes or crackles. CV - heart was regular rate and rhythm. S1-S2. No murmurs gallops or rubs. Abd - abdomen was soft. Nontender. Nondistended. Positive bowel sounds. Ext - no clubbing, cyanosis or edema. 2+ DP pulses bilaterally. Neuro - patient is alert and oriented x4. Strength is 5/5 in both upper and lower extremities. Cranial nerves 2-12 are intact. Speech is clear. Psych - normal mood and affect. Patient is pleasant and cooperative. Skin - warm and dry. No rashes noted. Const: General: comfortable DS: Data Data Completed and Pending Pending studies at discharge: Pending at discharge 05/13/25 08:40 Surgical [PTH] Routine Labs on day of discharge: Labs from last 24 hours 05/14/25 04:56 WBC 8.8 RBC 4.08 L Hgb 11.9 L Hct 36.5 L MCV 89.5 MCH 29.2 MCHC 32.6 RDW 13.5 Plt Count 110 L MPV 11.4 H Immature Gran % (Auto) 0.8 H Neut % (Auto) 67.0 Lymph % (Auto) 26.1 [place] % (Auto) 5.8 Eos % (Auto) 0.1 Baso % (Auto) 0.2 Lymph # (Auto) 2.31 [place] # (Auto) 0.5 Eos # (Auto) 0.0 Baso # (Auto) 0.0 Abs Immat Gran (auto) 0.07 H Absolute Neuts (auto) 5.9 Absolute Nucleated RBC 0.000 Nucleated RBC % 0.0 % Immature Plt Fraction 6.2 Sodium 135 L Potassium 3.4 Chloride 107 Carbon Dioxide 24 Anion Gap 4 BUN 19 H Creatinine 0.92 Estim Creat Clear Calc 66 Estimated GFR > 60 Glucose 105 Calcium 9.1 Total Bilirubin 0.9 AST 43 H ALT 37 H Alkaline Phosphatase 118 Total Protein 7.0 Albumin 3.5 Preliminary micro results at discharge 05/12/25 17:55 Urine Culture - Preliminary Urine - Clean Catch Midstream Escherichia coli. Discharge Plan Discharge Attending physician on discharge: Rodney Olmstead Consulting providers: Burak Edwards; Holger Bynum Discharging Clinician: Gillian Dumont Patient Disposition: Home Activity: may shower Diet: low fat Discharge Instructions: WHY YOU WERE IN THE HOSPITAL: You came to the hospital with abdominal and back pain. We found that you had: * Gallbladder inflammation (cholecystitis) * Urinary tract infection (UTI) WHAT WE DID: * Removed your gallbladder with laparoscopic surgery on May 13, 2025 * Treated your urinary infection with IV antibiotics YOUR MEDICATIONS: * Augmentin 875 mg - Take 1 tablet by mouth twice daily for 4 more days to finish treating your urine infection * Continue all your home medications as prescribed ACTIVITY: * Light activity only for the next 2 weeks * No heavy lifting (nothing over 10 pounds) for 2 weeks * You may shower - gently pat incisions dry * No driving while taking narcotic pain medication DIET: * Start with light, low-fat foods * Gradually return to your normal diet as tolerated * Drink plenty of water INCISION CARE: * Keep incisions clean and dry * Small bandages may be removed in 2 days * You may shower but do not soak in a bathtub CALL YOUR DOCTOR OR GO TO ER IF YOU HAVE: * Fever over 101?F * Severe abdominal pain * Redness, swelling, or drainage from incisions * Nausea/vomiting and cannot keep fluids down * Yellowing of skin or eyes * Painful or burning urination that returns FOLLOW-UP APPOINTMENTS: * Surgery follow-up with Dr. Bynum as instructed QUESTIONS? Call your doctor's office. Patient Instructions: Antibiotic Form Patient Language: Upper Sorbian Stand Alone Forms: General Discharge Information Follow-up/Referrals: Anthony Gomez MD [Primary Care Provider, Internal Medicine] - 2 Weeks Holger Bynum DO [Physician, General Surgery] - 1 Week Referral Note: please follow Dr Bynum instructions for a follow up saurav Discharge Medications: New amoxicillin-pot clavulanate 875-125 mg tablet 1 tablet PO Q12H Qty: 8 0RF Continued multivitamin [Daily Multi-Vitamin] Tablet 1 tablet PO DAILY Date of admission: 05/12/25 03:13 Primary Care Provider: Anthony Gomez Admitting Provider: Lupe Delvalle Attending physician on admission: Lupe Delvalle Condition: Stable Quality VTE Prophylaxis VTE prophylaxis: mechanical ordered Hospitalist MIPS Heart Failure (Exclusion) Patient has history of Heart Transplant or Left Ventricular Assistive Device?: No IF YES, STOP HERE Heart Failure (Qualifier) Patient has current or prior documentation of LVEF less than or equal to 40%, or mod/servere depressed LVSF?: No IF NO, STOP HERE
--- NOTE | 2025-05-14 12:08 | PM.PNGS ---
Progress Note: A&P Assessment and Plan (1) Acute calculous cholecystitis: Code(s): K80.00 - Calculus of gallbladder with acute cholecystitis without obstruction Status: Acute Assessment and Plan: Much improved on postop day 1. Filling defect cholangiogram was likely a gas bubble as patient has no obstructive symptoms and liver enzymes are improving. Okay to discharge today. Discharge instructions discussed with patient. Follow-up in office 2 weeks. (2) Elevated liver enzymes: Code(s): R74.8 - Abnormal levels of other serum enzymes Status: Acute Subjective Subjective Date/Time Seen: 05/14/25 12:08 Interval history: Feeling better today. Tolerating diet. Bowels moving. Pain controlled. Exam GI: Inspection: non-distended and incision (Intact with glue) GI Palp: Yes Soft to palpation, Yes Tenderness to palpation present (GI) (Mild incisional), No Guarding due to palpation present (GI) and No Rebound tenderness present Auscultation: normal bowel sounds Objective Data Vital Signs Vital Signs: Vital Signs - 24 hr 05/13/25 12:30 05/13/25 16:34 05/13/25 20:00 Temperature 97.8 F 97.6 F Pulse Rate 96 83 Respiratory Rate 16 17 Blood Pressure 121/64 116/58 L Pulse Oximetry 98 97 Oxygen Delivery Room Air 05/13/25 20:34 05/14/25 04:34 05/14/25 08:45 Temperature 97.6 F 97.2 F L Pulse Rate 75 66 Respiratory Rate 18 18 Blood Pressure 100/57 L 112/48 L Pulse Oximetry 96 98 Oxygen Delivery Room Air Intake/Output Intake/Output: Intake & Output 05/11/25 05/12/25 05/13/25 05/14/25 23:59 23:59 23:59 23:59 Intake Total 2825 1390 840 Balance 2825 1390 840 Meds/Results Medications: Active Medications Generic Name Dose Route Start Last Admin Trade Name Freq PRN Reason Stop Dose Admin Hydrocodone Bitart/Acetaminophen 1 tab 05/13/25 10:49 Hydrocodone/Acetaminophen (*Crx) 5-325 Mg Tablet PO Q4H PRN Pain Rated 4-6 Hydrocodone Bitart/Acetaminophen 1 tab 05/13/25 10:49 Hydrocodone/Acetaminophen (*Crx) 7.5-325 Mg Tablet PO Q4H PRN Pain Rated 7-10 Enoxaparin Sodium 40 mg 05/14/25 09:00 05/14/25 08:44 Enoxaparin 40 Mg/0.4 Ml Syringe SUB-Q Not Given DAILY PATIENCE Piperacillin Sod/Tazobactam 50 mls @ 100 mls/hr 05/12/25 13:05 05/14/25 11:02 Sod 3.375 gm/ Sodium Chloride IVPB 100 mls/hr Q6HR PATIECNE Administration Ibuprofen 800 mg in 200 mls @ 400 mls/hr 05/13/25 10:49 05/13/25 14:34 Caldolor 800 Mg/200 Ml IVPB 400 mls/hr Q6H PRN Administration Breakthrough Pain Rated 1-3 or NPO Ibuprofen 600 mg 05/13/25 10:49 Ibuprofen 600 Mg Tablet PO Q6H PRN Pain Rated 1-3 Morphine Sulfate 2 mg 05/13/25 10:49 Morphine Sulfate (*Crx) 4 Mg/Ml Inj IV PUSH Q2H PRN Breakthrough Pain Rated 4-6 or NPO Morphine Sulfate 4 mg 05/13/25 10:49 Morphine Sulfate (*Crx) 4 Mg/Ml Inj IV PUSH Q2H PRN Breakthrough Pain Rated 7-10 or NPO Multivitamins Therapeutic 1 tablet 05/13/25 09:00 05/14/25 08:45 Multivitamins Therapeutic Tab (*Bkc) PO 1 tablet DAILY PATIENCE Administration Naloxone HCl 0.1 mg 05/13/25 10:49 Naloxone Hcl 0.4 Mg/Ml Vial IV PUSH Q2M PRN Opiate Reversal Ondansetron HCl 4 mg 05/12/25 03:13 Ondansetron Inj 4 Mg/2 Ml Vial IV PUSH Q4H PRN Nausea Pantoprazole Sodium 40 mg 05/13/25 09:00 05/14/25 08:45 Pantoprazole 40 Mg Tablet PO 40 mg QAM PATIENCE Administration Radiology Results: ITS Impressions Abdomen/Pelvis CT 05/12/25 07:54 IMPRESSION: 1. Pancreatic head and uncinate findings may be associated with pancreatitis. Correlate with amylase and lipase levels; also, gallbladder findings could represent cholecystitis. Right upper quadrant ultrasound may provide additional beneficial information. 2. Other chronic findings as above. NOTE: Preliminary radiologist report provided by [facility] radiologist/physician. IMPRESSION: No acute findings. Abdomen Ultrasound 05/12/25 11:02 IMPRESSION: 1. Cholelithiasis with reported positive Mohan's sign by technologist. No gross wall thickening or pericholecystic fluid. 2. The common bile duct is within normal limits. MRCP 05/12/25 12:55 IMPRESSION: 1. Cholelithiasis with distended gallbladder and gallbladder wall thickening most suggestive of cholecystitis with possible cystic duct obstruction. Hepatobiliary scintigraphy may provide additional beneficial information. 2. There is slight prominence in the proximal pancreatic duct, however the biliary ducts otherwise are normal in size. No choledocholithiasis or discrete intraductal filling defect is identified in the common bile duct or pancreatic duct. No evidence of acute pancreatitis. 3. 2.1 cm fluid-filled or cystic lesion in immediate proximity to the pancreatic portion of the common bile duct probably represents small duodenal diverticulum. Choledochocele could have a similar appearance but there appears to be a small diverticulum from the duodenum in this area on today's CT exam. Labs Labs: Laboratory Results - last 24 hr 05/14/25 04:56 WBC 8.8 RBC 4.08 L Hgb 11.9 L Hct 36.5 L MCV 89.5 MCH 29.2 MCHC 32.6 RDW 13.5 Plt Count 110 L MPV 11.4 H Immature Gran % (Auto) 0.8 H Neut % (Auto) 67.0 Lymph % (Auto) 26.1 [place] % (Auto) 5.8 Eos % (Auto) 0.1 Baso % (Auto) 0.2 Lymph # (Auto) 2.31 [place] # (Auto) 0.5 Eos # (Auto) 0.0 Baso # (Auto) 0.0 Abs Immat Gran (auto) 0.07 H Absolute Neuts (auto) 5.9 Absolute Nucleated RBC 0.000 Nucleated RBC % 0.0 % Immature Plt Fraction 6.2 Sodium 135 L Potassium 3.4 Chloride 107 Carbon Dioxide 24 Anion Gap 4 BUN 19 H Creatinine 0.92 Estim Creat Clear Calc 66 Estimated GFR > 60 Glucose 105 Calcium 9.1 Total Bilirubin 0.9 AST 43 H ALT 37 H Alkaline Phosphatase 118 Total Protein 7.0 Albumin 3.5
== END 2025-05-14 13:07 | disposition home or self-care (01) | DRG 418 ==
LOC: ANHED 05-12 00:35 → ANH3MEDSUR 05-12 04:32 → ANH2MED 05-12 04:45
PROVIDERS: Emergency Medicine; Physician Assistant; Surgery; Admitting Provider Internal Medicine; Emergency Provider Student in an Organized Health Care Education/Training Program; PCP Family Medicine; Visit Provider Nurse Practitioner
PROC: 0FT44ZZ Resection of Gallbladder, Percutaneous Endoscopic Approach (ICD-10-PCS; CPT 47562; principal; 2025-05-13 08:00)
DX: K85.90 Acute pancreatitis without necrosis or infection, unspecified (principal); E87.1 Hypo-osmolality and hyponatremia; K80.00 Calculus of gallbladder with acute cholecystitis without obstruction; N39.0 Urinary tract infection, site not specified; E66.9 Obesity, unspecified; K59.09 Other constipation; K21.9 Gastro-esophageal reflux disease without esophagitis; D69.6 Thrombocytopenia, unspecified; B96.20 Unspecified Escherichia coli [E. coli] as the cause of diseases classified elsewhere; Z96.653 Presence of artificial knee joint, bilateral; Z68.37 Body mass index [BMI] 37.0-37.9, adult
CPT/HCPCS: 36415; 74177; 74183; 74300; 76376; 76705; 80053; 80061; 81001; 82248; 83605; 83690; 85025; 85055; 86850; 86900; 86901; 87086; 87186; 88304; 96361; 96374; 99285; A9270; A9577; J1100; J1741; J2003; J2270; J2405; J2543; J2704; J3010; J7030; J7120; Q9966; Q9967